=== PATIENT | female | born 1975 | race Caucasian/White ===

== ENCOUNTER 2025-04-11 13:24 | Day surgery (SDC) | payer OTHER, SELFPAY ==
[2025-04-11] VITALS (8 sets, daily range): BP systolic 94–140; BP diastolic 64–93; PULSE 71–104; RESP 15–18; TEMP 36.4–36.7; O2SAT 95–100; BMI 22.6
[2025-04-11] MEDS: Lactated Ringers 1,000 ML 15 ML IV (13:53)
--- NOTE | 2025-04-11 14:10 | PCM.PRE.AN2 ---
ASA Classification* ASA Classification ASA Classification: 1 Assessment & Plan Anesthesia* Anesthesia Assessment Anesthesia Assessment: Discussed sedation and/or anesthesia options, risks, benefits, and alternatives with patient/parents/legal guardian/POA. Questions invited. The patient/parents/legal guardian/POA seems to understand and agrees to proceed with anesthesia plan. Reviewed the physical assessment, medical history, allergy history and patient home medications list prior to surgery/procedure/anesthetic and documented any changes. Performed airway and anesthesia risk assessments. 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 When Was Last Pacemaker Check QUESTION #4 FULL TEXT: You/Your Family Experience fever (hyperthermia) with Anesthesia Last Oral Intake Last Oral intake: Last Oral Intake NPO since 10:30 04/11/25 13:47 Meds taken in AM with sips of No 04/11/25 13:47 water? Meds patient instructed to take am of surgery Any additional information?: Yes NPO since: 10:30 (Patient finished her prep at 10:30 AM.) PONV PONV - demurrage worker: PONV - demurrage worker Female Yes 04/06/25 11:27 HX of Motion Sickness Yes 04/06/25 11:27 HX of N/V After Surgery No 04/06/25 11:27 Non-Smoker Yes 04/06/25 11:27 Duration of Surgery greater No 04/06/25 11:27 than 60 minutes Number of Risk Factors 3 04/06/25 11:27 PONV Score Moderate Risk 04/06/25 11:27 Height & Weight Height & Weight: Anesthesia: Height & Weight Height 5 ft 2 in 04/11/25 13:47 Weight: 56 kg 04/11/25 13:47 Body Mass Index (BMI) 22.6 04/11/25 13:47 Respiratory Assessment Respiratory Assessment - demurrage worker: Respiratory Tract Infection Hx - demurrage worker Hx Respiratory Tract Infection No 04/06/25 11:27 STOP Sleep Apnea STOP Sleep Apnea - demurrage worker: STOP Sleep Apnea - demurrage worker Hx Hypertension No 04/06/25 11:27 Hx Sleep Apnea No 04/06/25 11:27 CPAP BIPAP Do you snore loudly (louder No 04/06/25 11:27 than talking or can be heard Do you often feel tired/ No 04/06/25 11:27 fatigued/ sleepy during daytime? Has anyone observed you stop No 04/06/25 11:27 breathing during sleep? STOP Results Negative 04/06/25 11:27 QUESTION #5 FULL TEXT : Do you snore loudly (louder than talking or can be heard through closed doors)? Tobacco Use History Tobacco Use History - demurrage worker: Tobacco Use History - demurrage worker Tobacco Use Smoking Status Never smoker 04/06/25 11:27 Hx Tobacco Use No 04/06/25 11:27 Years Smoking Packs Smoked per Day Smoking Cessation Date was within the last 15 years Hx Smoking Cessation Date Hx Smoking Cessation Counseling Hematologic Medial History Hematologic Hx - demurrage worker: Hematologic Medical Hx - medical sales representative Hx of Blood Transfusion No 04/06/25 11:27 Hx of Transfusion in last 3 No 04/06/25 11:27 Months Date of Last Transfusion (if within last 3 months) Ever experience any problems No 04/06/25 11:27 with transfusion(s)? Specify any problems Hx of Preganancy in last 3 No 04/06/25 11:27 Months Nurse Filling Out Transfusion [email or web address] 04/06/25 11:27 & Questions: Date: 04/06/25 04/06/25 11:27 Time: 11:29 04/06/25 11:27 Patient unable to answer at this time (ie. confused, unrespo /Reproduction History /Reproductive History - demurrage worker: /Reproductive Hx- demurrage worker Hx Now No 04/06/25 11:27 Gestational Age (in weeks): EDC: Hx Hx Para Hx Section SAB No 04/06/25 11:27 Active Medications Active Medications: Current Medications Generic Name Dose Route Start Last Admin Trade Name Freq PRN Reason Stop Dose Admin Lactated Ringer's 1,000 mls @ 15 mls/hr 04/11/25 14:00 04/11/25 13:53 IV 15 mls/hr .Q48H [facility] Medical History (Updated 04/06/25 @ 11:32 by Wes Wallace) Wears contact lenses Migraine headache History of Holter monitoring Home Medications ?Medication ?Instructions ?Recorded ?Last Taken ?Type norgestimate 0.18 mg/0.215mg/0.25 1 tab PO QDAY 12/16/24 Unknown History mg-ethinyl estradiol 0.025 mg tablet peg 3350-sod sulf,zqexs-pbi-owg 240 ml PO .COMPLEX #2 mL 12/16/24 Unknown Rx 178.7-7.3-0.5-1.12-0.9 gram oral soln (Suflave) ibuprofen 200 mg tablet (Advil) 400 mg PO Q8H PRN pain 04/06/25 Unknown History Allergy/AdvReac Type Severity Reaction Status Date / Time No Known Allergies Allergy Verified 04/11/25 13:46 no surgical history Social History Smoking Status: Never smoker Review of Systems (Anesthesia) ROS Narrative System reviewed and no additional complaints, except as documented.
[2025-04-11 14:28] LABS: Internal QC Validated? YES +Cl - CLEAR BKGD; Pregnancy, Serum, hCG Quali. NEGATIVE Negative
[2025-04-11 14:29] LABS: Record Kit Lot#, Serum Preg. 962302
--- NOTE | 2025-04-11 14:30 | COLBX_PTH ---
PATIENT: SRINATH HAWK LOC: EN U#:[id number] AGE/SX: 50/F ROOM: RE04/11/[address]: Dr. Willy Boyle DO : 1975 BED: DIS: 04/11/2025 SPEC #: [id number] RECD: 04/11/25 15:52 STATUS: DAVID CHARMAINE #: [id number] RADHA: 04/11/25 14:[address]: Willy Boyle DEPT: SURGICAL PATHOLOGY RECD BY: Chencho Haley ENTERED: 04/12/25 09:27 SP TYPE: COLON BX OTHR DR: REID Mix Tissues: A - Ileum, NOS B - Cecum, NOS C - COLON BIOPSY D - Transverse colon E - COLON BIOPSY F - Sigmoid colon biopsy G - Rectum, NOS Procedures: Surgery Specimen Level IV HEADER OPERATION: Colonoscopy with biopsy PRE-OP DIAGNOSIS: Diarrhea TISSUE SUBMITTED: A- Terminal ileum biopsy, B- Cecum biopsy, C- Right side colon biopsy, D- Transverse colon biopsy, E- Left side colon biopsy, F- Sigmoid colon biopsy, G- Rectum biopsy MICROSCOPIC DIAGNOSIS A. Terminal ileum, biopsy: - Normal villous architecture with no specific pathologic change. B. Cecum, biopsy: - Acute colitis with mild crypt architectural distortion. - No granulomas or dysplasia seen. C. Colon, right side, biopsy: - focal active colitis with mild crypt architectural distortion. - No granulomas or dysplasia seen. D. Transverse colon, biopsy: - Acute colitis with mild crypt architectural distortion. - No granulomas or dysplasia seen. E. Colon, left side, biopsy: - Acute cryptitis with crypt architectural distortion. - No granulomas or dysplasia seen. F. Sigmoid colon, biopsy: - Acute cryptitis with crypt architectural distortion. - No granulomas or dysplasia seen. G. Rectum, biopsy: - Acute cryptitis with crypt architectural distortion and basal lymphoplasmacytosis. - No granulomas or dysplasia seen. COMMENT: The histologic differential diagnosis includes inflammatory bowel disease, infection, and diverticular disease-associated colitis. Recommend correlation with clinical, endoscopic, and imaging findings. MICROSCOPIC DESCRIPTION Slides are reviewed. GROSS DESCRIPTION A. Received in fixative is one container labeled with the patient's name and designated Terminal ileum biopsy. The specimen consists of two irregular fragments of light car soft tissue that in aggregate measure 0.3 and 0.8 cm. The specimen is totally submitted in one cassette. B. Received in fixative is one container labeled with the patient's name and designated Cecum biopsy. The specimen consists of three irregular fragments of light car soft tissue that in aggregate measure 0.2 to 0.3 cm. The specimen is totally submitted in one cassette. C. Received in fixative is one container labeled with the patient's name and designated Right side colon biopsy. The specimen consists of two irregular fragments of light car soft tissue that in aggregate measure 0.3 and 0.4 cm. The specimen is totally submitted in one cassette. D. Received in fixative is one container labeled with the patient's name and designated Transverse colon biopsy. The specimen consists of three irregular fragments of light car soft tissue that in aggregate measure 0.3 to 0.4 cm. The specimen is totally submitted in one cassette. E. Received in fixative is one container labeled with the patient's name and designated Left side colon biopsy. The specimen consists of two irregular fragments of light car soft tissue that in aggregate measure 0.5 cm. The specimen is totally submitted in one cassette. F. Received in fixative is one container labeled with the patient's name and designated Sigmoid colon biopsy. The specimen consists of two irregular fragments of light car soft tissue that in aggregate measure 0.4 and 0.5 cm. The specimen is totally submitted in one cassette. G. Received in fixative is one container labeled with the patient's name and designated Rectum biopsy. The specimen consists of five irregular fragments of light car soft tissue that in aggregate measure 0.2 to 0.5 cm. The specimen is totally submitted in one cassette. [place] 04/12/2025 CPT:09896w7
--- NOTE | 2025-04-11 15:06 | HP.PCM_ITS ---
HPI - General General Date of Admission: 04/11/25 Date of Service: 04/11/25 Chief Complaint: Diarrhea HPI Narrative SRINATH HAWK, is a 50 F who presents with the Chief Complaint: diarrhea Pt went on a cruise in Sep 2024 and two hours after eating lobster for dinner she started having sever nausea, vomiting and diarrhea. She was seen on by on the ship and was given an IV antibiotic and zofran. This eventually resolved however her bowels have not gone back to normal. She was someone who had a bm every few days. Now she has small stools multiple times per day. This is bothersome to her as it interrupts her at her job. All stool testing for infection has been normal. She has never had a colonoscopy before [facility] Medical History Wears contact lenses Migraine headache History of Holter monitoring Home Medications ?Medication ?Instructions ?Recorded ?Last Taken ?Type norgestimate 0.18 mg/0.215mg/0.25 1 tab PO QDAY Unknown History mg-ethinyl estradiol 0.025 mg tablet peg 3350-sod sulf,ckuya-rvl-zhw 240 ml PO .COMPLEX #2 mL 12/16/24 Unknown Rx 178.7-7.3-0.5-1.12-0.9 gram oral soln (Suflave) ibuprofen 200 mg tablet (Advil) 400 mg PO Q8H PRN pain 04/06/25 Unknown History Allergy/AdvReac Type Severity Reaction Status Date / Time No Known Allergies Allergy Verified 04/11/25 13:46 Surgical History no surgical history Social History Smoking Status: Never smoker ROS Constitutional Constitutional: Denies fatigue, fever(s), poor appetite, weight gain or weight loss Gastrointestinal Gastrointestinal: Denies belching, bloating, change in bowel habits, change in stool character, chewing difficulty, coffee ground emesis, constipation, cramping, diarrhea, dyspepsia, dysphagia, early satiety, excessive flatus, fecal incontinence, heartburn, hematemesis, hematochezia, hemorrhoids, loose stools, melena, nausea, odynophagia, rectal bleeding, tenesmus, vomiting or weight changes Vital Signs Vital Signs Vital Signs: 04/11/25 13:47 04/11/25 13:47 04/11/25 14:15 Temperature 98.1 F 98.1 F Temperature Source Temporal Pulse Rate 104 H 104 H Respiratory Rate 16 16 Respiratory Pattern Normal Blood Pressure 140/93 H 140/93 H Blood Pressure Mean 108 Blood Pressure Source Monitor Blood Pressure Position Semi-Fowlers Blood Pressure Location Left Arm Pulse Ox 100 100 Oxygen Delivery Method Room Air Room Air Weight Weight: 123 lb 7.342 oz Body Mass Index (BMI) 22.6 Physical Exam Const alert, oriented x3, no apparent distress and healthy appearing General Appearance: cooperative GI normal to inspection, nondistended, normoactive bowel sounds, soft to palpation, non-tender and non-distended Percussion: normal to percussion Rectal Exam: deferred Results Lab / Micro Data Labs: Laboratory Results - last 24 hr 04/11/25 13:50: Serum , Qual NEGATIVE Assessment & Plan Assessment/Plan (1) Diarrhea: PLAN: Assessment and Plan Assessment and Plan (1) Diarrhea: Status: Acute Plan: This is a 49 yo female pt here today for evaluation of changes in her bowel habits. Pt was on a cruise in Sep 2024 when she ate lobster and started vomiting and having diarrhea. Since then she has had small bm multiple times per day which is not normal for her. She has never had a colonoscopy. She will be scheduled for this today. I ordered calprotectin to ensure she does not have inflammation. I recommended she start a fiber supplement daily. -Colonoscopy -calprotectin -start fiber -f/u after procedure
--- NOTE | 2025-04-11 15:39 | OP.COLON_ITS ---
Patient Name: Angelo Zaragoza Procedure Date: 04/11/2025 3:09 PM Date of : 1975 Age: 50 Procedure: Colonoscopy Indications: Chronic diarrhea Providers: Willy Boyle DO Referring MD: Leeann Bhagat Medicines: Monitored Anesthesia Care Patient Profile: This is a 50 year old female. Refer to note in patient chart for documentation of history and physical. Last Colonoscopy: none. The patient's first colonoscopy is today. Complications: No immediate complications. Procedure: Pre-Anesthesia Assessment: - Prior to the procedure, a History and Physical was performed, and patient medications and allergies were reviewed. The patient is competent. The risks and benefits of the procedure and the sedation options and risks were discussed with the patient. All questions were answered and informed consent was obtained. Patient identification and proposed procedure were verified by the physician in the pre-procedure area. Mental Status Examination: alert and oriented. Airway Examination: normal oropharyngeal airway and neck mobility. Respiratory Examination: clear to auscultation. CV Examination: normal. Prophylactic Antibiotics: The patient does not require prophylactic antibiotics. Prior Anticoagulants: The patient has taken no anticoagulant or antiplatelet agents except for NSAID medication. ASA Grade Assessment: II - A patient with mild systemic disease. After reviewing the risks and benefits, the patient was deemed in satisfactory condition to undergo the procedure. The anesthesia plan was to use monitored anesthesia care (MAC). Immediately prior to administration of medications, the patient was re-assessed for adequacy to receive sedatives. The heart rate, respiratory rate, oxygen saturations, blood pressure, adequacy of pulmonary ventilation, and response to care were monitored throughout the procedure. The physical status of the patient was re-assessed after the procedure. After I obtained informed consent, the scope was passed under direct vision. Throughout the procedure, the patient's blood pressure, pulse, and oxygen saturations were monitored continuously. The pediatric colonoscope was introduced through the anus and advanced to the terminal ileum. The colonoscopy was performed without difficulty. The patient tolerated the procedure well. The quality of the bowel preparation was adequate. The terminal ileum, ileocecal valve, appendiceal orifice, and rectum were photographed. Scope In: 3:20:40 PM Scope Withdrawal Time 0 hours 6 minutes 9 seconds Scope Out: 3:32:15 PM Total Procedure Duration Time 0 hours 11 minutes 35 seconds Findings: The perianal and digital rectal examinations were normal. Inflammation was found in a continuous and circumferential pattern from the anus to the cecum. This was graded as Horner Score 2 (moderate, with marked erythema, absent vascular pattern, friability, erosions), and when compared to the previous examination, the findings are new. Biopsies were taken with a cold forceps for histology. Verification of patient identification for the specimen was done. Estimated blood loss was minimal. Liquid stool was found in the sigmoid colon, in the descending colon, in the transverse colon, at the hepatic flexure and in the ascending colon, without interference to visualization. Fluid aspiration was performed through the scope suction channel. The amount of fluid collected was 60 mL. Sample(s) were sent for bacterial cultures and Clostridium difficile. The terminal ileum appeared normal. Biopsies were taken with a cold forceps for histology. Verification of patient identification for the specimen was done. Estimated blood loss was minimal. Impression: - Moderately active (Horner Score 2) pancolitis ulcerative colitis, new since the last examination. Biopsied. - Stool in the sigmoid colon, in the descending colon, in the transverse colon, at the hepatic flexure and in the ascending colon. Fluid aspiration performed. - The examined portion of the ileum was normal. Biopsied. Recommendation: - Discharge patient to home. - Resume previous diet. - Continue present medications. - Await pathology results. - Repeat colonoscopy in 1 year for surveillance based on pathology results. Procedure Code(s): --- Professional --- 63650, Colonoscopy, flexible; with biopsy, single or multiple CPT copyright 2021 [employer]. All rights reserved. The codes documented in this report are preliminary and upon computer language coder review may be revised to meet current compliance requirements. Willy Boyle DO 04/11/2025 3:39:39 PM This report has been signed electronically. Number of Addenda: 0 Note Initiated On: 04/11/2025 3:09 PM
--- NOTE | 2025-04-11 15:40 | OP.PROVAT_ITS ---
04/11/2025 Leeann Bhagat Re : Colonoscopy procedure for Angelo Zaragoza Deafeli Bhagat This procedure was performed on Friday, April 11, 2025. My impressions and recommendations are as follows: Impressions : - Moderately active (Horner Score 2) pancolitis ulcerative colitis, new since the last examination. Biopsied. - Stool in the sigmoid colon, in the descending colon, in the transverse colon, at the hepatic flexure and in the ascending colon. Fluid aspiration performed. - The examined portion of the ileum was normal. Biopsied. Recommendations : - Discharge patient to home. - Resume previous diet. - Continue present medications. - Await pathology results. - Repeat colonoscopy in 1 year for surveillance based on pathology results. My findings are described in the full procedure note, which is enclosed. If I can be of further assistance, please feel free to contact me at . Sincerely, Willy Friend, 04/11/2025 3:39:39 PM This report has been signed electronically.
--- NOTE | 2025-04-11 15:40 | PCM.POST.ANE ---
Anesthesia: Postop Eval I Current Vital Signs Temperature: 97.5 F Pulse Rate: 73 Blood Pressure: 94/69 Respiratory Rate: 15 Pulse Ox: 95 Oxygen Delivery Method: Room Air Assessment Airway patent: Yes Spontaneous unlabored respirations: Yes Mental status: Awake nausea: No Vomiting: No Anesthesia Complication: No Fluid Hydration Crystalloid volume administer (ml): 400 Total IV fluid infused: 400 Progress Note Anesthesia document: Postop Eval 1 completed: Yes
[2025-04-11 17:36] LABS: Hematocrit 39.5 % (37-47); Hemoglobin 12.4 g/dL (12.0-15.0); Immature Granulocytes Count 0.030 X10^3/uL (0.0-0.0); Mean Corp Hgb Conc 31.4 g/dL (32-36); Mean Corpuscular Volume 87.6 fL (81-99); Mean Platelet Vol. 11.0 fl (6.2-12.0); NRBC Flagged by Analyzer 0 % (0-5); Platelet Count 347 K/mm3 (150-450); RBC Distribution Width CV 14.9 % (11.6-14.6); RBC Distribution Width SD 47.9 fl (35.1-43.9); Red Blood Count 4.51 M/mm3 (4.2-5.4); White Blood Count 9.2 K/mm3 (4.4-11.0)
[2025-04-11 17:51] LABS: AST(SGOT) 18 U/L (<=31); Alanine Aminotransfer ALT/SGPT 13 U/L (<=34); Albumin, Serum 3.9 g/dL (3.5-5.0); Alkaline Phosphatase 86 U/L (35-104); Anion Gap 14 (5-15); BUN 8 mg/dL (4-19); BUN/Creat Ratio 8.3 RATIO (10-20); CRP 20.70 mg/L (0.0-3.0); Calcium,Total 9.1 mg/dL (7.6-11.0); Carbon Dioxide 18.9 mmol/L (21.0-32.0); Chloride 102 mmol/L (98-108); Estimated Creatinine Clearance 58.51 ml/min (50-250); Globulin 4.1 g/dL (2.2-4.2); Glucose 122 mg/dL (70-99); Potassium 3.6 mmol/L (3.3-5.1)
--- NOTE | 2025-04-11 20:26 | POSTOPAN2_ITS ---
Anesthesia Postop Eval I Sum Postop Eval Completion status Anesthesia document: Postop Eval 1 completed: Yes Anesthesia Postop Eval I Summary Anesthesia Postop Eval I Summary: Anesthesia Postop Eval I: Assessment Summary Airway patent Yes 04/11/25 15:41 CORPORATE INTERN.APAT Spontaneous unlabored Yes 04/11/25 15:41 CORPORATE INTERN.APAT respirations Mental status Awake 04/11/25 15:41 CORPORATE INTERN.APAT nausea No 04/11/25 15:41 CORPORATE INTERN.APAT Vomiting No 04/11/25 15:41 CORPORATE INTERN.APAT Anesthesia Postop Eval I: Fluid Summary Crystalloid volume administer 400 04/11/25 15:41 CORPORATE INTERN.APAT (ml) Colloids volume administered ( ml) Blood Product volume administered (ml) Total IV fluid infused 400 04/11/25 15:41 CORPORATE INTERN.APAT Anesthesia Postop Eval I: Summary Notes Anesthesia Complication No 04/11/25 15:41 CORPORATE INTERN.APAT Anesthesia Complication Comment: Post-operative progress note Anesthesia: Postop Eval II Evaluation Mental status: Awake and Calm Pain Level: 0 nausea: No Vomiting: No Complications Anesthesia Complication: No
--- NOTE | 2025-04-11 20:26 | PCM.POSTANE2 ---
Anesthesia Postop Eval I Sum Postop Eval Completion status Anesthesia document: Postop Eval 1 completed: Yes Anesthesia Postop Eval I Summary Anesthesia Postop Eval I Summary: Anesthesia Postop Eval I: Assessment Summary Airway patent Yes 04/11/25 15:41 INTERNET SALES CONSULTANT.APAT Spontaneous unlabored Yes 04/11/25 15:41 INTERNET SALES CONSULTANT.APAT respirations Mental status Awake 04/11/25 15:41 INTERNET SALES CONSULTANT.APAT nausea No 04/11/25 15:41 INTERNET SALES CONSULTANT.APAT Vomiting No 04/11/25 15:41 INTERNET SALES CONSULTANT.APAT Anesthesia Postop Eval I: Fluid Summary Crystalloid volume administer 400 04/11/25 15:41 INTERNET SALES CONSULTANT.APAT (ml) Colloids volume administered ( ml) Blood Product volume administered (ml) Total IV fluid infused 400 04/11/25 15:41 INTERNET SALES CONSULTANT.APAT Anesthesia Postop Eval I: Summary Notes Anesthesia Complication No 04/11/25 15:41 INTERNET SALES CONSULTANT.APAT Anesthesia Complication Comment: Post-operative progress note Anesthesia: Postop Eval II Evaluation Mental status: Awake and Calm Pain Level: 0 nausea: No Vomiting: No Complications Anesthesia Complication: No
[2025-04-18 18:08] LABS: Egg, White <0.10 kU/L (Class 0); SCALLOP <0.10 kU/L (Class 0); SESAME SEED <0.10 kU/L (Class 0); Walnut, (Food) <0.10 kU/L (Class 0)
[2025-05-03 13:08] LABS: ACCA 25 units (0-90); ALCA 7 units (0-60); AMCA 47 units (0-100); Albumin 3.5 g/dL (2.9-4.4); Anti-Smooth Muscle ABS 29 Units (0-19); Cytoplasmic Ab (C-ANCA) <1:20 titer (Neg:<1:20); Gamma Globulin 1.9 g/dL (0.4-1.8); HEPATITIS B SURFACE AG Negative (Negative); Hep C Antibodies Non Reactive (Non Reactive); IgG, Quant 1904 mg/dL (586-1602); Immunoglobulin A 179 mg/dL (87-352); Immunoglobulin G, Subclass 1 1167 mg/dL (248-810); Immunoglobulin G, Subclass 2 269 mg/dL (130-555); Immunoglobulin G, Subclass 3 26 mg/dL (15-102); Immunoglobulin G, Subclass 4 24 mg/dL (2-96); Immunoglobulin M 220 mg/dL (26-217); PROEL- TOTAL PROTEIN 7.9 g/dL (6.0-8.5); Perinuclear Ab (P-ANCA) <1:20 titer (Neg:<1:20); QNTFERON TB Mitogen Value > 10.00 IU/mL (.); QNTFERON TB Nil Value 0.02 IU/mL (.); QNTFERON TB1+ Ag Value 0.03 IU/mL (.); QNTFERON TB2+ Ag Value 0.01 IU/mL (.); QNTIFERON TB Positive Criteria Negative (Negative)
== END 2025-04-11 16:25 | disposition home or self-care (01) ==
LOC: EN 13:25 → AC 13:27
PROVIDERS: Anesthesiology; PCP Physician Assistant; Referring Provider Physician Assistant; Visit Provider Internal Medicine Gastroenterology
PROC: 0DJD8ZZ Inspection of Lower Intestinal Tract, Via Natural or Artificial Opening Endoscopic (ICD-10-PCS; CPT 45378; principal; 2025-04-11 14:25)
DX: K51.00 Ulcerative (chronic) pancolitis without complications (principal); R19.7 Diarrhea, unspecified
CPT/HCPCS: 45380; 36415; 80053; 80074; 82784; 82785; 82787; 83516; 84165; 84703; 85025; 85652; 86003; 86036; 86037; 86140; 86255; 86334; 86480; 86671; 87493; 87506; 88305

== ENCOUNTER → 2025-04-13 | Outpatient (CLI) | payer OTHER, SELFPAY ==
--- OUTSIDE RECORDS SUMMARY | 2025-04-13 21:01 | XMS RPT_ITS | CCD ---
Author Organization [facility] CliniSyor Care Team Providers Care Color Repairer Name Role Phone Yosvany Barragan MD Unavailable Yosvany Barragan MD Unavailable KalaRETIRED , Dr. Potts Unavailable Senior Data Warehouse Developer/Gynecology Prov. Unavailable Un available Henri MARRERON, Esther Unavailable UnavailKatlyn Valladares MD Unavailable Yovana MARRERON, Adriana Unavailable Brett MARRERONLorna Unavailable Unavailable King MOE-C, Moises Munguia Unavailable Tylor MARRERON, Asha K Unavailable Unavai erika Bhagat PA-C, Leeann Atkins Unavailable [phone] Melvin MARRERON, Katlyn Perry Unavailable Unavailab lucho Pro CNM, Lucila Jamison Unavailable Rony MARRERON, Densie Unavailable Unavailabl e Unavailable Unavailable Unavailable Unavailable Unavailable Unavailable Lucie Reyes LPN Unavailable Unavailable Madelin Knight Unavailable Unavailable Gastroenterology Provider Unavailable Unavai erika [facility] Attending Unavailable LEEANN BHAGAT Admitting Unavailable YOSVANY BARRAGAN Consulting Unavailable LEEANN BHAGAT Primary Care Unavailable LEEANN BHAGAT Attending Unavailable PROVIDER, UNKNOWN Consulting Unavailable PROVIDER, UNKNOWN Consulting Unavailable PROVIDER, UNKNOWN Consulting Unavailable BHAGAT, LEEANN J Admitting Unavailable BHAGAT, LEEANN J Primary Care Unavailable BHAGAT, LEEANN J Consulting Unavailable BHAGATTINOLEEANN J Attending Unavailable PROVIDER, UNKNOWN Consulting Unavailable BHAGAT, LEEANN J Admitting Unavailable BHAGAT, LEEANN J Primary Care Unavailable BHAGAT, LEEANN J Consulting Unavailable BHAGAT, LEEANN J Attending Unavailable PROVIDER, UNKNOWN Consulting Unavailable LOBO TATUM Consulting Unavailable LOBO TATUM Admitting Unavailable NONE, NONE Primary Care Unavailable LOBO TATUM Attending Unavailable LOBO TATUM Consulting Unavailable NONE, NONE Consulting Unavailable NONE, NONE Consulting Unavailable NONE, NONE Primary Care Unavailable RC PA-C, LUMA Consulting Unavailable RC PA-C~[id number], RC YOUSON Attending Unavailable RC PA-C~[id number], RC LUMA Admitting Unavailable RC PA-C, LUMA Consulting Unavailable NONE, NONE Consulting Unavailable NONE, NONE Consulting Unavailable Antonia OSBORNE Madelin Unavailable Unavailable Delio DE JESUS, Dr. Navi Cagle Primary Care Provider Dr. Navi Kebede MD Referring Provider Xochilt Reaves Attending Provider [phone] Dr. Willy Boyle DO Attending Provider Leeann Parada Primary Care Provider [phone] Leeann Parada Referring Provider [phone] Dr. Willy Boyle DO Other Provider [phone] Olayinka TILLEY, Leeann Atkins Unavailable [phone] Navi Kebede Primary Care Unavailable Navi Kebede Referring Unavailable Xochilt Moreno Attending Unavailable Navi Kebede Primary Care Unavailable Navi Kebede Referring Unavailable oXchilt Moreno Attending Unavailable Willy Boyle Attending Unavailable Leeann Parada Primary Care Unavailable Leeann Parada Referring Unavailable Willy Boyle Consulting Unavailable Willy Boyle Attending Unavailable Leeann Parada Primary Care Unavailable Leeann Parada Referring Unavailable Medications Current Medications Medication Drug Class(es) Dates Sig (Normalized) Sig (Original) Norgestimate-Ethiny l Estradiol (20 sources) Progestin, Estrogen Start: 12-16-2024 Norgestimate-Ethin yl Estradiol 0.18/0.215/0.25 mg-25 mcg tablet Active 1 {tbl} PO daily December 16, 2024 12:00am Start: 12-12-2024 Kristi 0.25 mg-3 5 mcg tablet ; 1 tablet daily for 0 days Quantity: 3 {Packet} Refills: 3 Ordered: 12-Dec-2024 JAREK Bhagat Start: 12-Dec-2024 Start: 08-22-2024 Kristi 0.25 mg-3 5 mcg tablet ; 1 tablet daily for 0 days Quantity: 3 {Packet} Refills: 1 Ordered: 22-Aug-2024 MD Yosvany Barragan Start: 22-Aug-2024 Start: 03-03-2024 Kristi 0.25 mg-3 5 mcg tablet ; 1 tablet daily for 0 days Quantity: 3 {Packet} Refills: 1 Ordered: 03-Mar-2024 JAREK Bhagat Start: 03-Mar-2024 Start: 12-04-2023 Kristi 0.25 mg-3 5 mcg tablet ; 1 tablet daily for 0 days Quantity: 3 {Packet} Refills: 0 Ordered: 04-Dec-2023 JAREK Bhagat Start: 04-Dec-2023 Kristi 0.25 mg-35 mcg tablet ; 1 daily (0.25-35 mg-mcg) ibuprofen 200 mg oral tablet (1 source) Nonsteroidal Anti-inflammatory Drug Start: 04-06-2025 take 2 tablets by mouth every eight hours as needed for pain Ibuprofen (Advil) 200 mg tablet Active 400 mg PO Q8H as needed for pain April 06, 2025 12:00am Peg 3350-Sod Sulf,Grew-Xak-Amr (Suflave) 178.7-7.3-0.5 gram recon soln (1 source) Start: 12-16-2024 Peg 3350-Sod Sulf,Chlr-Pot-Ma g (Suflave) 178.7-7.3-0.5 gram recon soln Active 240 mL PO .COMPLEX 2 0 December 16, 2024 12:00am 240 mL orally; predniSONE 20 mg oral tablet (1 source) Start: 04-11-2025 take 2 tablets by mouth once daily, then take 1 tablet by mouth once daily, then take 0.5 tablet by mouth once daily Prednisone 20 mg tablet Active 40 mg PO daily 60 3 April 11, 2025 12:00am Take 2 tabs a day x 2 weeks, then take 1 tab a day x 2 weeks, then take half a tab a day x 2 weeks Completed/Discontinued Medications Medication Drug Class(es) Dates Sig (Normalized) Sig (Original) azithromycin 500 mg oral tablet (16 sources) Macrolide Antimicrobial Start: 09-26-2024 End: 09-29-2024 Zithromax 500 mg tablet ; 1 (one) tablet daily for 3 days Quantity: 3 {Tablet} Refills: 0 Ordered: 26-Sep-2024 JAREK Bhagat Start: 26-Sep-2024 End: 29-Sep-2024 Status: Inactive cephalexin 500 mg oral capsule (20 sources) Cephalosporin Antibacterial Start: 12-03-2016 End: 12-13-2016 take 1 capsule by mouth three times daily Cephalexin 500 MG Oral Capsule ; 1 Capsule three times daily for 10 days Quantity: 30 {Capsule} Refills: 0 Ordered: 03-Dec-2016 CLAY Ta Start: 03-Dec-2016 End: 13-Dec-2016 Status: Inactive levonorgestrel 0.830499 mg/hr intrauterine system (20 sources) Progestin, Progestin-containing Intrauterine Device MIRENA, 20MCG/24HR (Intrauterine Intrauterine Device) ; (20 MCG/24HR) Status: Inactive metroNIDAZOLE 0.0075 mg/mg topical gel (20 sources) Nitroimidazole Antimicrobial Start: 06-23-2022 End: 12-04-2023 metroNIDAZOLE 0.75 % topical gel ; 1 (one) Application to affected areas BID for 0 days Quantity: 60 {Gram} Refills: 1 Ordered: 04-Dec-2023 LUZ MARIA Álvarez Start: 23-Jun-2022 End: 04-Dec-2023 Status: Inactive nystatin 194576 unt/ml oral suspension (20 sources) Polyene Antifungal Start: 12-03-2016 End: 12-13-2016 Nystatin 364283 UNIT/ML Mouth/Throat Suspension ; 5 Milliliter four times daily for 10 days Quantity: 80 {Milliliter} Refills: 0 Ordered: 03-Dec-2016 CLAY Ta Start: 03-Dec-2016 End: 13-Dec-2016 Status: Inactive Comments: Retain for 1 minute then swallow Comment on above: Retain for 1 minute then swallow Problems Active Problems Problem Classification Problem Date Documented Da te Episodic/Chronic Abdominal pain (20 sources) Unspecified symptom associated with female genital organs; Translations: [Abdominal pain] 02-25-2012 Episodic Benign neoplasm of uterus (20 sources) Uterine leiomyoma; Translations: [Leiomyoma of uterus, unspecified] 09-29-2024 Episodic Cancer of cervix (20 sources) Atypical squamous cells of undetermined significance on cervical Papanicolaou smear; Translations: [Atypical squamous cells of undetermined significance on cytologic smear of cervix (ASC-US)] 06-19-2022 Episodic Cardiac dysrhythmias (20 sources) Multiple premature ventricular complexes; Translations: [Ventricular premature depolarization] 10-18-2015 Chronic Cardiac dysrhythmias (20 sources) Intermittent palpitations; Translations: [Palpitations] 06-12-2022 Episodic Contraceptive and procreative management (20 sources) Intrauterine contraceptive device in situ; Translations: [Presence of (intrauterine) contraceptive device] Onset: 09-14-2010 06-12-2022 Episodic Comment on above: per [place] [employer] INVE[employer]IGATOR Heart valve disorders (20 sources) Heart murmur; Translations: [Cardiac murmur, unspecified] 06-12-2022 Episodic Immunizations and screening for infectious disease (20 sources) Need for prophylactic vaccination and inoculation against influenza 07-15-2011 Episodic Intestinal infection (20 sources) Traveler's diarrhea; Translations: [Infectious gastroenteritis and colitis, unspecified] 09-26-2024 Episodic Menstrual disorders (20 sources) Disorder of menstruation; Translations: [Irregular menstruation, unspecified] 06-19-2022 Chronic Mycoses (20 sources) Candidiasis of mouth; Translations: [Candidal stomatitis] 12-03-2016 Episodic Other gastrointestinal disorders (20 sources) Diarrhea; Translations: [Diarrhea, unspecified] 09-29-2024 Episodic Other gastrointestinal disorders (5 sources) Diarrhea, unspecified; Translations: [DIARRHEA UNSPECIFIED] Onset: 09-24-2024 Episodic Other inflammatory condition of skin (20 sources) Rosacea; Translations: [Rosacea, unspecified] 06-12-2022 Chronic Other non-traumatic joint disorders (20 sources) Pain in left knee; Translations: [Pain in joint, lower leg] 02-29-2024 Episodic Other screening for suspected conditions (not mental disorders or infectious disease) (20 sources) Breast finding ; Translations: [Inconclusive mammogram] 07-28-2022 Episodic Other upper respiratory infections (20 sources) Acute pharyngitis; Translations: [Acute pharyngitis, unspecified] 12-03-2016 Episodic Regional enteritis and ulcerative colitis (1 source) Ulcerative colitis; Translations: [Ulcerative colitis, unspecified, without complications] 04-11-2025 Chronic Residual codes; unclassified (20 sources) Non-smoker; Translations: [Other specified health status] 06-12-2022 Episodic Unclassified (20 sources) Number of Children 06-12-2022 Comment on above: 3. Unclassified (20 sources) Number of Pregnancies 06-12-2022 Comment on above: 5. Unclassified (20 sources) Vaginal deliveries 06-12-2022 Comment on above: 3. Unclassified (20 sources) Palpitations - The symptoms first began 1 week(s) ago. The onset has been sudden. Each episode lasts approximately 30 minutes. The symptoms occur 3 time(s) per day . The symptoms are getting worse. The palpitations are described as fluttering (not fast). Associated features include arm pain (left arm. more numbness than pain.), dizziness (only at work) and shortness of breath (if active during an episode; notes at her new job). There are no precipitating factors. Aggravating factors include change in position. There are no relieving factors. 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 The course has been constant. The knee pain is moderate in the left knee. The knee pain is characterized as a dull aching. The knee pain is described as being located in the under patella. The knee pain is aggravated by stairs. The knee pain is relieved by rest. The symptoms have been associated with painful ROM. Note for Knee pain: One day made 4 trips up and down the steps and then it has persistently been bothering her. No injury.Stairs are the worst activity. Pain is 2/10 currently when sitting.Worse with or after more activity. Sleeps with her knee bent and so after being active it is 5/10. Will taking tylenol if it gets really bad - does help.No ice/heat application. Doesn't feel like it is giving out on her.No swelling. The pain is more in the front of the knee but does feel it in the anterior thigh at times too. 02-29-2024 Past or Other Problems Problem Classification Problem Date Documented Da te Episodic/Chronic Unclassified (1 source) Well adult female 12-04-2023 Unclassified (20 sources) Well adult female - The patient feels well with no complaints, has good energy level and is sleeping well. The first day of the last menstrual period was : (06/09/2022). The patient is not using any method of contraception at this time. The patient has a balanced diet and takes no supplemental vitamins & iron. The patient does not exercise. The patient sleeps 6 hours per night. Note for Well adult female: Usual menses are spotting x 2-3 days, then heavy flow x 2 days, then spotting again. This has been x 2 years - was to have a pelvic US but never did due to covid. 06-12-2022 Unclassified (20 sources) Menstrual problems - The menstrual problems are characterized as intermenstrual spotting (just this last period spotting x 1 week prior to starting normal menses, history of spotting x 2-3 days, then regular bleeding x 2 days, then cycle complete for the last year. this last cycle very abnormal for her) and heavy menses and have been occurring in an intermittent pattern for 1 year. The first day of the last menstrual period was : (11/23/2019). Currently : no. The symptoms have been associated with abdominal pain and abdominal cramps, but have not been associated with painful intercourse or hot flashes. The patient denies the use of oral contraceptives. There is no history of use of intrauterine device (one removed years ago), hormone replacement therapy, infertility treatment or radiation treatment. Note for Menstrual problems: also passing quarter size clots and breast tenderness. 11-28-2019 Unclassified (20 sources) Well adult female - The patient feels well with no complaints, has good energy level and is sleeping well. The current method of contraception is: intrauterine device. The patient has a balanced diet and takes no supplemental vitamins & iron. The patient does not exercise. The patient sleeps 7 hours per night. Note for Well adult female: -Has had IUD since 2010 and she needs it taken out.Both urgent care and [facility] told her that she has a heart murmur in November. 02-11-2017 Unclassified (20 sources) Cold Symptoms - Symptoms include nasal congestion, runny nose, purulent discharge, sore throat, dry cough and headache, but do not include ear pain, fever (had low grade on day one), general malaise or facial pain. The onset was gradual 1 week(s) ago. The symptoms occur frequently. The patient describes this as moderate in severity and unchanged. Current treatment includes non-prescription cold medication (mucinex and nyquil). Risk factors do not include smoking. 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 Note for Upper respiratory infection: right eye is redshe [facility]. Reviewed by SANDI. 12-03-2016 Unclassified (20 sources) check placement of IUD - Mirena placed 2010 by Angelika [employer] MAINTENANCE WORKER-she was supposed to get it checked yearly and realized that it has been since 2011 that she has had it checked. She also had concerns that her period last month lasted 9 days which was unusual. 10-18-2015 Unclassified (20 sources) Pelvic pain - The onset of the pain began suddenly and has been occurring in a persistent pattern for 5 days. The course has been constant. The pain is described as a moderate stabbing pain. The pain is described as being located in the suprapubic area. The pain does not radiate. The first day of the last menstrual period was : (2 wks ago, normal). Menstruation is regular. There is no relation of the pain to menses. Currently : no. Note for Pelvic pain: She has had a Mirena for 10 months, pain just started 5 days ago. Onset was Thursday afternoon at 4pm and lasted all evening. Sat/Sun felt achey in pelvic area. Thursday afternoon cramping began again. She is not bleeding. 02-25-2012 Unclassified (20 sources) check IUD - Had Mirena IUD placed in May by Dr. Katlyn Armendariz (I referred her since I was not able to sound the uterus on attempt here). She states her only complaint is frequent spotting. Does have a week of a heavy period and then spots frequently thru the month. No pain other than cramping during cycle and occasional brief episodes cramping. No pain with intercourse. Is not able to feel her own strings (has not been able to since it was placed). 09-18-2011 Unclassified (20 sources) having mirena insertion - Pt here today to have mirena inserted. She did take ibuprofen and her test today was negative. Consent reviewed and signed and pts questions answered. 05-26-2011 Unclassified (20 sources) iud consult - Pt is interested in the mirena device. She is pretty sure her insurance would cover it. Has read information. No history of tubal . LMP 03/28. 04-24-2011 Unclassified (20 sources) Well adult female - The patient feels well with no complaints, has good energy level and is sleeping well. The first day of the last menstrual period was : (11/15/2023). The patient has a balanced diet. The patient does not exercise. The patient sleeps 7 hours per night. Note for Well adult female: Patient is not wanting pap today. 12-04-2023 Unclassified (1 source) Diarrhea - The onset of the diarrhea has been sudden and has been occurring in a persistent pattern for 2 weeks. The course has been constant. The stools are watery and mixed with blood. The volume of the stools is large. The symptoms have been associated with abdominal pain, nocturnal bowel movements, recent travel to tropics and weakness, while the symptoms have not been associated with fever, joint pains, nausea, past history of abdominal surgery, similar illness in other people eating the same meal, skin lesions or vomiting. Note for Diarrhea: Pt states that on she was on a cruise and 30 minutes after eating Lobster and other seafood she started vomiting and had severe diarrhea. Pt states that she saw the cruise ship doctor and was given ATB through IV - Ceftriaxone and Ondansetron. Dx Gastroenteritis and Colitis. Did feel better after that. Pt states that she got back from the [place] a week ago and was doing a little better but then started getting worse again went to [facility] in [place] they started pt on hyosyamine 0.125 and a stool culture results not in yet.On Thursday did have a little blood noted in the stool. Watery diarrhea. Had chicken noodle soup on Thursday and was up every hour in the night. Yesterday just had apple, banana, and 1/2 cup of rice yesterday- still up twice in the night. Hasn't eaten anything today. Last BM was 9:30am and still watery. Has cramping lower abd pain that improves after BMs.No recent vomiting. No fever.LMP was 09/18/2024. 09-26-2024 Unclassified (15 sources) Diarrhea - The onset of the diarrhea has been sudden and has been occurring in a persistent pattern for 2 weeks. The course has been constant. The stools are watery and mixed with blood. The volume of the stools is large. The symptoms have been associated with abdominal pain, nocturnal bowel movements, recent travel to trop[place] and weakness, while the symptoms have not been associated with fever, joint pains, nausea, past history of abdominal surgery, similar illness in other people eating the same meal, skin lesions or vomiting. Note for Diarrhea: Pt states that on she was on a cruise and 30 minutes after eating Lobster and other seafood she started vomiting and had severe diarrhea. Pt states that she saw the cruise ship doctor and was given ATB through IV - Ceftriaxone and Ondansetron. Dx Gastroenteritis and Colitis. Did feel better after that but stool not back to normal. Pt states that she got back from the Cruise a week ago and was doing a little better but then started getting worse again went to [facility] in [place] they started pt on hyosyamine 0.125 and a stool culture results not in yet.On Thursday did have a little blood noted in the stool. Watery diarrhea. Had chicken noodle soup on Thursday and was up every hour in the night. Yesterday just had apple, banana, and 1/2 cup of rice yesterday- still up twice in the night. Hasn't eaten anything today. Last BM was 9:30am and still watery. Has cramping lower abd pain that improves some after BMs but having pain even when walking across lower abd.No recent vomiting. No fever.Pt did not have food or drink off of the boat (other than bottled water packaged from [employer]).LMP was 09/18/2024. 09-26-2024 Unclassified (8 sources) Well adult female - The patient feels well with minor complaints (still is having some bowel issues, does not have diarrhea but will go several times a day and will come on quickly - usually still formed/solid; has taken prn Imodium but since she was sick with traveler's diarrhea in September it just hasn't been right), has good energy level and is sleeping well. The first day of the last menstrual period was : (12/07/2024). The current method of contraception is: oral contraceptives. The patient has a balanced diet and takes no supplemental vitamins & iron. The patient does not exercise. The patient sleeps 6 hours per night. 12-12-2024 Results Test Name Value Interpretation Reference Range Facility CBC W/Diff, Automatedon 07-2 Absolute Lymph 1.75 X10 3/uL Normal 0.83-4.51 [facility] Comment on above: Performed By: #### L 500.4050, L100.0100, L101.9900, [id number] #### [facility] [address] [place], [address] Absolute Neut 6.0 X10 3/uL Normal 2.0-7.7 [facility] Comment on above: Performed By: #### L 500.4050, L100.0100, L101.9900, [id number] #### [facility] [address] [place], [address] Basophils/100 WBC (Bld) 0.5 % Normal 0-1 [facility] Comment on above: Performed By: #### L 500.4050, L100.0100, L101.9900, [id number] #### [facility] [address] [place], [address] Eosinophils/100 WBC (Bld) 8.6 % High 0-5 [facility] Comment on above: Performed By: #### L 500.4050, L100.0100, L101.9900, [id number] #### [facility] [address] [place], [address] Erythrocyte distribution width (RBC) [Ratio] 14.9 % High 11.6-14.6 [facility] Comment on above: Performed By: #### L 500.4050, L100.0100, L101.9900, [id number] #### [facility] [address] [place], [address] Hematocrit (Bld) [Volume fraction] 39.5 % Normal 37-47 [facility] Comment on above: Performed By: #### L 500.4050, L100.0100, L101.9900, [id number] #### [facility] [address] [place], [address] Hemoglobin (Bld) [Mass/Vol] 12.4 g/dL Normal 12.0-15.0 [facility] Comment on above: Performed By: #### L 500.4050, L100.0100, L101.9900, [id number] #### [facility] [address] [place], [address] IG% 0.300 Normal 0.0-0.9 [facility] Comment on above: Result Comment: IG% - Immature Granulocytes (promyelocytes, myelocytes and metamyelocytes) > 1% indicates that a LEFT SHIFT is Present. Performed By: #### L 500.4050, L100.0100, L101.9900, [id number] #### [facility] [address] [place], [address] Lymphocytes/100 WBC (Bld) 19.1 % Normal 19-41 [facility] Comment on above: Performed By: #### L 500.4050, L100.0100, L101.9900, [id number] #### [facility] [address] [place], [address] MCH (RBC) [Entitic mass] 27.5 pg Normal 27.0-32.0 [facility] Comment on above: Performed By: #### L 500.4050, L100.0100, L101.9900, [id number] #### [facility] [address] [place], [address] MCHC (RBC) [Mass/Vol] 31.4 g/dL Low 32-36 [facility] Comment on above: Performed By: #### L 500.4050, L100.0100, L101.9900, [id number] #### [facility] [address] [place], [address] MCV (RBC) [Entitic vol] 87.6 fL Normal 81-99 [facility] Comment on above: Performed By: #### L 500.4050, L100.0100, L101.9900, [id number] #### [facility] [address] [place], [address] Monocytes/100 WBC (Bld) 6.1 % Normal 0-10 [facility] Comment on above: Performed By: #### L 500.4050, L100.0100, L101.9900, L501.6710 #### [facility] [address] [place], [address] Neutrophils/100 WBC (Bld) 65.4 % Normal 47-70 [facility] Comment on above: Performed By: #### L 500.4050, L100.0100, L101.9900, L501.6710 #### [facility] [address] [place], [address] Nucleated RBC (Bld) [#/Vol] 0 10*3/uL Normal 0-5 [facility] Comment on above: Performed By: #### L 500.4050, L100.0100, L101.9900, L501.6710 #### [facility] [address] [place], [address] Platelet mean volume (Bld) [Entitic vol] 11.0 fL Normal 6.2-12.0 [facility] Comment on above: Performed By: #### L 500.4050, L100.0100, L101.9900, L501.6710 #### [facility] [address] [place], [address] Platelets (Bld) [#/Vol] 347 10*3/uL Normal 150-450 [facility] Comment on above: Performed By: #### L 500.4050, L100.0100, L101.9900, L501.6710 #### [facility] [address] [place], [address] RBC (Bld) [#/Vol] 4.51 10*6/uL Normal 4.2-5.4 [facility] Comment on above: Performed By: #### L 500.4050, L100.0100, L101.9900, L501.6710 #### [facility] [address] [place], [address] RDW SD 47.9 fl High 35.1-43.9 [facility] Comment on above: Performed By: #### L 500.4050, L100.0100, L101.9900, L501.6710 #### [facility] [address] [place], [address] WBC (Bld) [#/Vol] 9.2 10*3/uL Normal 4.4-11.0 [facility] Comment on above: Performed By: #### L 500.4050, L100.0100, L101.9900, L501.6710 #### [facility] [address] [place], [address] CDIFF (PCR)on 04-11-2025 CDIFF Is the patient receiving laxatives? N New/unexplained onset of 3 or more stools in past 24 hrs? Y Pending 027 027 NAP1-B1 Presumptive Negative *for epidemiolologic???use C. Diff PCR Negative- No toxigenic C. Diff Detected Normal [facility] Comment on above: Performed By: #### M 100.6767 #### [facility] [address] [facility] [place], [address] CRPon 04-11-2025 C-REACTIVE PROT 20.70 mg/L High 0.0-3.0 [facility] Comment on above: Performed By: #### L 500.4050, L100.0100, L101.9900, L501.6710 #### [facility] [address] [facility] [place], [place], [address] Colonoscopy Reporton 025 Colonoscopy Report [facility] Medical Records Department [address] [place] [address] Colonoscopy Report MR#: [id number] Acct: [id number] Name: SRINATH HAWK Rep #: [id number] : 1975 50 From: Willy Boyle DO PCP: REID Mix Status:REG [facility] Patient Name: Srinath Hawk Procedure Date: 04/11/2025 3:09 PM Date of : 1975 Age: 50 Procedure: Colonoscopy Indications: Chronic diarrhea Providers: Willy Boyle DO Referring MD: Leeann Bhagat Medicines: Monitored Anesthesia Care Patient Profile: This is a 50 year old female. Refer to note in patient chart for documentation of history and physical. Last Colonoscopy: none. The patient's first colonoscopy is today. Complications: No immediate complications. Procedure: Pre-Anesthesia Assessment: - Prior to the procedure, a History and Physical was performed, and patient medications and allergies were reviewed. The patient is competent. The risks and benefits of the procedure and the sedation options and risks were discussed with the patient. All questions were answered and informed consent was obtained. Patient identification and proposed procedure were verified by the physician in the pre-procedure area. Mental Status Examination: alert and oriented. Airway Examination: normal oropharyngeal airway and neck mobility. Respiratory Examination: clear to auscultation. CV Examination: normal. Prophylactic Antibiotics: The patient does not require prophylactic antibiotics. Prior Anticoagulants: The patient has taken no anticoagulant or antiplatelet agents except for NSAID medication. ASA Grade Assessment: II - A patient with mild systemic disease. After reviewing the risks and benefits, the patient was deemed in satisfactory condition to undergo the procedure. The anesthesia plan was to use monitored anesthesia care (MAC). Immediately prior to administration of medications, the patient was re-assessed for adequacy to receive sedatives. The heart rate, respiratory rate, oxygen saturations, blood pressure, adequacy of pulmonary ventilation, and response to care were monitored throughout the procedure. The physical status of the patient was re-assessed after the procedure. After I obtained informed consent, the scope was passed under direct vision. Throughout the procedure, the patient's blood pressure, pulse, and oxygen saturations were monitored continuously. The pediatric colonoscope was introduced through the anus and advanced to the terminal ileum. The colonoscopy was performed without difficulty. The patient tolerated the procedure well. The quality of the bowel preparation was adequate. The terminal ileum, ileocecal valve, appendiceal orifice, and rectum were photographed. Scope In: 3:20:40 PM Scope Withdrawal Time 0 hours 6 minutes 9 seconds Scope Out: 3:32:15 PM Total Procedure Duration Time 0 hours 11 minutes 35 seconds Findings: The perianal and digital rectal examinations were normal. Inflammation was found in a continuous and circumferential pattern from the anus to the cecum. This was graded as Horner Score 2 (moderate, with marked erythema, absent vascular pattern, friability, erosions), and when compared to the previous examination, the findings are new. Biopsies were taken with a cold forceps for histology. Verification of patient identification for the specimen was done. Estimated blood loss was minimal. Liquid stool was found in the sigmoid colon, in the descending colon, in the transverse colon, at the hepatic flexure and in the ascending colon, without interference to visualization. Fluid aspiration was performed through the scope suction channel. The amount of fluid collected was 60 mL. Sample(s) were sent for bacterial cultures and Clostridium difficile. The terminal ileum appeared normal. Biopsies were taken with a cold forceps for histology. Verification of patient identification for the specimen was done. Estimated blood loss was minimal. Impression: - Moderately active (Horner Score 2) pancolitis ulcerative colitis, new since the last examination. Biopsied. - Stool in the sigmoid colon, in the descending colon, in the transverse colon, at the hepatic flexure and in the ascending colon. Fluid aspiration performed. - The examined portion of the ileum was normal. Biopsied. Recommendation: - Discharge patient to home. - Resume previous diet. - Continue present medications. - Await pathology results. - Repeat colonoscopy in 1 year for surveillance based on pathology results. Procedure Code(s): --- Professional --- 90477, Colonoscopy, flexible; with biopsy, single or multiple CPT copyright 2021 [employer]. All rights reserved. The codes documented in this report are preliminary and upon fine jewelry sales associate review may be revised to meet current compliance r (more content not included)... Normal [facility] Comprehensive Metabolic Prof ilon 04-11-2025 Albumin [Mass/Vol] 3.9 g/dL Normal 3.5-5.0 [facility] Comment on above: Performed By: #### L 500.4050, L100.0100, L101.9900, L501.6710 #### [facility] [address] [place], [address] Albumin/Globulin [Mass ratio] 0.9 {ratio} Normal 0.9-2.4 [facility] Comment on above: Performed By: #### L 500.4050, L100.0100, L101.9900, L501.6710 #### [facility] [address] [place], [address] ALK PHOS 86 U/L Normal 35-104 [facility] Comment on above: Performed By: #### L 500.4050, L100.0100, L101.9900, L501.6710 #### [facility] [address] [place], [address] ALT [Catalytic activity/Vol] 13 U/L Normal <=34 [facility] Comment on above: Performed By: #### L 500.4050, L100.0100, L101.9900, L501.6710 #### [facility] [address] [place], [address] AST [Catalytic activity/Vol] 18 U/L Normal <=31 [facility] Comment on above: Performed By: #### L 500.4050, L100.0100, L101.9900, L501.6710 #### [facility] [address] [place], [address] Bilirubin [Mass/Vol] 0.33 mg/dL Normal 0.00-1.30 [facility] Comment on above: Performed By: #### L 500.4050, L100.0100, L101.9900, L501.6710 #### [facility] [address] [place], [address] BUN/CRE 8.3 RATIO Low 10-20 [facility] Comment on above: Performed By: #### L 500.4050, L100.0100, L101.9900, L501.6710 #### [facility] [address] [place], [address] Calcium [Mass/Vol] 9.1 mg/dL Normal 7.6-11.0 [facility] Comment on above: Performed By: #### L 500.4050, L100.0100, L101.9900, L501.6710 #### [facility] [address] [place], [address] Chloride [Moles/Vol] 102 mmol/L Normal 98-108 [facility] Comment on above: Performed By: #### L 500.4050, L100.0100, L101.9900, L501.6710 #### [facility] [address] [place], [address] CO2 [Moles/Vol] 18.9 mmol/L Low 21.0-32.0 [facility] Comment on above: Performed By: #### L 500.4050, L100.0100, L101.9900, L501.6710 #### [facility] [address] [place], [address] Creatinine [Mass/Vol] 0.93 mg/dL Normal 0.70-1.20 [facility] Comment on above: Performed By: #### L 500.4050, L100.0100, L101.9900, L501.6710 #### [facility] [address] [place], [address] ECRCL 58.51 ml/min Normal 50-250 [facility] Comment on above: Performed By: #### L 500.4050, L100.0100, L101.9900, L501.6710 #### [facility] [address] [place], [address] GAP 14 Normal 5-15 [facility] Comment on above: Performed By: #### L 500.4050, L100.0100, L101.9900, L501.6710 #### [facility] [address] [place], [address] GFR/1.73 sq M.predicted among non-blacks MDRD (S/P/Bld) [Vol rate/Area] 75 mL/min/{1.73_m2} Normal >60 [facility] Comment on above: Result Comment: mL/m in/1.73m2 CKD-EPI Creatinine Equation (2020) Performed By: #### L 500.4050, L100.0100, L101.9900, L501.6710 #### [facility] [address] [place], [address] Globulin (S) [Mass/Vol] 4.1 g/dL Normal 2.2-4.2 [facility] Comment on above: Performed By: #### L 500.4050, L100.0100, L101.9900, L501.6710 #### [facility] [address] [place], [address] Glucose [Mass/Vol] 122 mg/dL High 70-99 [facility] Comment on above: Performed By: #### L 500.4050, L100.0100, L101.9900, L501.6710 #### [facility] [address] [place], [address] Potassium [Moles/Vol] 3.6 mmol/L Normal 3.3-5.1 [facility] Comment on above: Performed By: #### L 500.4050, L100.0100, L101.9900, L501.6710 #### [facility] [address] [place], [address] Sodium [Moles/Vol] 135 mmol/L Normal 133-145 [facility] Comment on above: Performed By: #### L 500.4050, L100.0100, L101.9900, L501.6710 #### [facility] [address] [place], [address] T PROT 8.0 g/dL Normal 5.9-8.4 [facility] Comment on above: Performed By: #### L 500.4050, L100.0100, L101.9900, L501.6710 #### [facility] [address] [place], [address] Urea nitrogen [Mass/Vol] 8 mg/dL Normal 4-19 [facility] Comment on above: Performed By: #### L 500.4050, L100.0100, L101.9900, L501.6710 #### [facility] [address] [place], [address] ENTERIC PATHOGEN PANEL STOOL on 04-11-2025 EP PANEL Comments: collected in endo during colonoscopy CAMPYLOBACTER Not Detected Norovirus Not Detected Rotavirus Not Detected Salmonella Not Detected Shiga Toxin Not Detected Shigella sp. Not Detected VIBRIO Not Detected Yersinia Not Detected Normal [facility] Comment on above: Performed By: #### M 100.637 #### [facility] [address] [place], [place], [address] Erythrocyte Sed Rateon 04-11 SED RATE 37 mm/hr High 0-30 [facility] Comment on above: Performed By: #### L 500.4050, L100.0100, L101.9900, L501.6710 #### [facility] [address] [place], [address] MR/OP.PROVATon 04-11-2025 [facility] Medical Records Department [address] [place] [address] Provation Physician Letter MR#: [id number] Acct: [id number] Name: SRINATH HAWK Rep #: [id number] : 1975 50 From: Willy Boyle DO PCP: REID Mix Status:REG [facility] 04/11/2025 Leeann Bhagat Re : Colonoscopy procedure for Srinath Hawk Dear Olayinka This procedure was performed on Friday, April 11, 2025. My impressions and recommendations are as follows: Impressions : - Moderately active (Horner Score 2) pancolitis ulcerative colitis, new since the last examination. Biopsied. - Stool in the sigmoid colon, in the descending colon, in the transverse colon, at the hepatic flexure and in the ascending colon. Fluid aspiration performed. - The examined portion of the ileum was normal. Biopsied. Recommendations : - Discharge patient to home. - Resume previous diet. - Continue present medications. - Await pathology results. - Repeat colonoscopy in 1 year for surveillance based on pathology results. My findings are described in the full procedure note, which is enclosed. If I can be of further assistance, please feel free to contact me at . Sincerely, Willy Boyle DO 04/11/2025 3:39:39 PM This report has been signed electronically. 04/11/25 1539 Date Willy Carr Signature: Date (if indicated) CC: REID Mix; Willy Boyle DO Date Dictated: 04/11/25 1509 Date Transcribed: Musician Instrumental: KOBY Signed [facility] MR/POSTOP.ANEon 04-11-2025 MR/POSTOP.[facility] Medical Records Department [address] [facility] [place] [address] Anesthesia Postop Eval I 04/11/25 1540 MR#: [id number] Acct: [id number] Name: SRINATH HAWK Rep #: [id number] : 1975 50 From: Dale Giles CRNA PCP: REID Mix Status:REG [facility] Y Race: C Location: [place] [address] Anesthesia: Postop Eval I Current Vital Signs Temperature: 97.5 F Pulse Rate: 73 Blood Pressure: 94/69 Respiratory Rate: 15 Pulse Ox: 95 Oxygen Delivery Method: Room Air Assessment Airway patent: Yes Spontaneous unlabored respirations: Yes Mental status: Awake nausea: No Vomiting: No Anesthesia Complication: No Fluid Hydration Crystalloid volume administer (ml): 400 Total IV fluid infused: 400 Progress Note Anesthesia document: Postop Eval 1 completed: Yes 04/11/25 154 Date Dale Giles EGG BREAKER Cosigner Signature: Date CC: Signed [facility] MR/COKULSME6iq 04-11-2025 MR/POST[address] Medical Records Department [address] [place] [address] Anesthesia Postop Eval II 04/11/252025 MR#: [id number] Acct: [id number] Name: SRINATH HAWK Rep #: [id number] : 1975 50 From: Shailesh Gomez MD PCP: REID Mix Status:DEP [facility] Y Race: C Location: EN Anesthesia Postop Eval I Sum Postop Eval Completion status Anesthesia document: Postop Eval 1 completed: Yes Anesthesia Postop Eval I Summary Anesthesia Postop Eval I Summary: Anesthesia Postop Eval I: Assessment Summary Airway patent Yes 04/11/25 15:41 EGG BREAKER.APAT Spontaneous unlabored Yes 04/11/25 15:41 EGG BREAKER.APAT respirations Mental status Awake 04/11/25 15:41 EGG BREAKER.APAT nausea No 04/11/25 15:41 EGG BREAKER.APAT Vomiting No 04/11/25 15:41 EGG BREAKER.APAT Anesthesia Postop Eval I: Fluid Summary Crystalloid volume administer 400 04/11/25 15:41 EGG BREAKER.APAT (ml) Colloids volume administered ( ml) Blood Product volume administered (ml) Total IV fluid infused 400 04/11/25 15:41 EGG BREAKER.APAT Anesthesia Postop Eval I: Summary Notes Anesthesia Complication No 04/11/25 15:41 EGG BREAKER.APAT Anesthesia Complication Comment: Post-operative progress note Anesthesia: Postop Eval II Evaluation Mental status: Awake and Calm Pain Level: 0 nausea: No Vomiting: No Complications Anesthesia Complication: No 04/11/252025 Date Shailesh Gomez MD Cosigner Signature: Date CC: Signed Normal [facility] ,Serum,hCG Quali.on 04-11-2025 HCG, SERUM QUAL Negative Normal [facility] Comment on above: Performed By: #### L 700.6800 #### [facility] [address] [place], [address] ,Urineon 04-11-2025 Beta HCG ( test) Ql (U) Normal [facility] Comment on above: Result Comment: Canc elled via OM: Pt refuses the test Performed By: #### L 400.7600 ####[facility] [address] [place], [address] INTERNAL QC OK? Normal [facility] Comment on above: Result Comment: Canc elled via OM: Pt refuses the test Performed By: #### L 400.7600 ####[facility] [address] [place], [address] RECORD KIT LOT# Normal [facility] Comment on above: Result Comment: Canc elled via OM: Pt refuses the test Performed By: #### L 400.7600 ####[facility] [address] [place], [address] Serum beta-hCG test, qualita tiveOrdered By: Shailesh Gomez on 04-11-2025 Beta HCG ( test) Ql Negative [facility] Gastroenterology Visit Repor ton 12-16-2024 Gastroenterology Visit Report [facility] [address] [place] [address] OFFICE VISIT Date of Service: 12/16/24 MR#: [id number] Acct: [id number] Name: SRINATH HAWK Rep #: [id number] : 1975 Provider: REID Treadwell Age/Sex: 49/F Location: [facility] Status: Signed Intake Intake Visit Reasons: Travelers Diarrhea Chief Complaint: diarrhea Medications ???Medication ???Instructions ???Recorded ???Confirmed ???Type norgestimate 0.18 mg/0.215 mg/0.25 1 tab PO QDAY 12/16/24 12/16/24 History mg-ethinyl estradiol 25 mcg tablet peg 3350-sod sulf,pdkzq-bnj-sbi 240 ml PO .COMPLEX #2 mL 12/16/24 12/16/24 Rx 178.7-7.3-0.5-1.12-0.9 gram oral soln (Suflave) Patient : No Nurse's Note: OV 12.16.24 Pt here to establish care with [facility]. Pt reports she has been sick since . Pt reports her stools have been abnormal since . Pt states she has bloody, mucus stools. Pt still has gallbladder. Denies n/v/c, and abdominal pain. HPI HPI Chief Complaint: diarrhea Details: SRINATH HAWK, is a 49 F who presents to the office today for establishment with [facility]. Pt went on a cruise in Sep 2024 and two hours after eating lobster for dinner she started having sever nausea, vomiting and diarrhea. She was seen on by on the ship and was given an IV antibiotic and zofran. This eventually resolved however her bowels have not gone back to normal. She was someone who had a bm every few days. Now she has small stools multiple times per day. This is bothersome to her as it interrupts her at her job. All stool testing for infection has been normal. She has never had a colonoscopy before ROS Const Constitutional: No fatigue, fever(s) or weight change ENT ENT: No difficulty swallowing Gastro GI: Positive for abdominal pain, change in bowel habits and Blood in stool; No belching, bloating, change in stool character, coffee ground emesis, constipation, cramping, diarrhea, heartburn, difficulty swallowing, feeling full early, excessive flatus, incontinent of stools, Vomiting blood/hematemesis, loose stools, Black,tarry stools, nausea/dyspepsia, pain with swallowing, vomiting or other Musc Musculoskeletal: No joint pain Skin Skin: No yellowing of the eye or itchy eyes Psych Psychiatric: No anxiety and No depression Endo Endocrine: No fatigue or weight change Aller/Imm Allergy/Immunologic: No itchy eyes Eren/Lymp Hematologic/Lymphatic: No easy bleeding or easy bruising Exam Const General: cooperative and comfortable Nutritional Appearance: average body habitus and well nourished [facility] Head: normal to inspection Ears: hearing grossly normal bilaterally Nose: external nose normal Face and sinus: normal facial exam Throat: posterior oropharynx abnormal Eyes General: appearance normal, both eyes and all related structures Neck Neck: normal visual inspection Chest Chest palpation inspection: normal inspection of the chest and normal palpation of entire chest wall Resp Effort Inspection: normal respiratory effort Auscultation: Bilateral: Clear to Auscultation Cardio Palpation: normal PMI Rate: regular rate Rhythm: regular rhythm GI Inspection: normal to inspection Auscultation: normal bowel sounds Percussion: normal to percussion Palpation: no hepatosplenomegaly Skin General: no rashes or lesions noted Neuro General: patient alert Extrem General: normal to inspection Psych Affect: normal affect Assessment and Plan Assessment and Plan (1) Diarrhea: Status: Acute Plan: This is a 49 yo female pt here today for evaluation of changes in her bowel habits. Pt was on a cruise in Sep 2024 when she ate lobster and started vomiting and having diarrhea. Since then she has had small bm multiple times per day which is not normal for her. She has never had a colonoscopy. She will be scheduled for this today. I ordered calprotectin to ensure she does not have inflammation. I recommended she start a fiber supplement daily. -Colonoscopy -calprotectin -start fiber -f/u after procedure Orders: Orders Calprotectin, Stool Today R19.7 - Diarrhea, unspecified Coding Level of Care Code Off vis,new,level 3 Diagnoses Diarrhea R19.7 12/16/24 1650 Date Xochilt MATHEWS Cosigner Signature: Date (if applicable) CC: Normal [facility] THINPREP TIS PAP AND HPV mRN A E6/E7on 12-14-2024 CLINICAL INFORMATION: Normal [facility] Comment on above: Result Comment: None given Performed By: #### 9 0933 #### [facility] [address], [address] [place] [address] Electric Motor Rebuilder: David Solorzano MD COMMENT Normal [facility] Comment on above: Result Comment: EXPL ANATORY NOTE: The Pap is a screening test for cervical cancer. It is not a diagnostic test and is subject to false negative and false positive results. It is most reliable when a satisfactory sample, regularly obtained, is submitted with relevant clinical findings and history, and when the Pap result is evaluated along with historic and current clinical information. Performed By: #### 9 0933 #### [facility] [address], [address] [place] [address] Electric Motor Rebuilder: David Solorzano MD COMMENT: Normal [facility] Comment on above: Result Comment: This Pap test has been evaluated with computer assisted technology. Performed By: #### 9 0933 #### [facility] [place] [address] Electric Motor Rebuilder: David Solorzano MD CLINICAL LAB TECHNOLOGIST: Normal [facility] Comment on above: Result Comment: BH, CT(ASCP) CT screening location: [employer] [address]. Performed By: #### 9 0933 #### [facility] [address], [address] [place] [address] Electric Motor Rebuilder: David Solorzano MD HPV mRNA E6/E7 Not detected Normal Not Detected [facility] Comment on above: Result Comment: Meth odology: Court Collections Officer-Mediated Amplification This assay detects E6/E7 viral messenger RNA (mRNA) from 14 high-risk HPV types (16,18,31,33,35,39,45,51,52,56,58,59,66,68). Cervical sources are required for HPV testing. If a vaginal source from a patient who has had a total hysterectomy with removal of cervix was submitted, please contact the testing laboratory for alternative testing options. For additional information, please refer to http://education.Intersoft Eurasia.MediaSpike/faq/PQE348i1 (This link if provided for information/ educational purposes only.) Performed By: #### 9 0933 #### [facility] [address], [address] [place] [address] [employer]: David Solorzano MD INTERPRETATION/RESULT: Normal [facility] Comment on above: Result Comment: Cyto logy Results: Negative for intraepithelial lesion or malignancy. Performed By: #### 9 0933 #### [facility] of [address], [address] [place] [address] [employer]: David Solorzano MD LMP: Normal [facility] Comment on above: Result Comment: None given Performed By: #### 9 0933 #### [facility] of [address], [address] [place] [address] [employer]builder: David Solorzano MD PREV. BX: Normal [facility] Comment on above: Result Comment: None given Performed By: #### 9 0933 #### [facility] of [address], [address] [place] [address] [employer]: David Solorzano MD PREV. PAP: Normal [facility] Comment on above: Result Comment: None given Performed By: #### 9 0933 #### [facility] of [place] [address] [employer]: David Solorzano MD REVIEW CLINICAL LAB TECHNOLOGIST: Normal [facility] Comment on above: Result Comment: PEH, CT(ASCP) CT screening location: [place] [address]. Performed By: #### 9 0933 #### [facility] of [address], [address] [place] [address] [employer]: David Solorzano MD SOURCE: Normal [facility] Comment on above: Result Comment: None given Performed By: #### 9 0933 #### [facility] of [address], [address] [place] [address] [employer]: David Solorzano MD STATEMENT OF ADEQUACY: Normal [facility] Comment on above: Result Comment: Sati sfactory for evaluation. Endocervical/transformation zone component present. Performed By: #### 9 0933 #### [facility] of [address], [address] [place] [address] [employer]: David Solorzano MD No Panel Informationon 12-12 [id number] SEE NOTE Normal [facility], Inc.; [employer]. CLINICAL INFORMATION: SEE NOTE Normal [facility].; CheungWebspy, [employer]. COMMENT: SEE NOTE Normal [facility].; [employer] App. CLINICAL LAB TECHNOLOGIST: SEE NOTE Normal [facility] [employer].; TripIt. HPV mRNA E6/E7 Not detected Normal [facility].; [employer]. INTERPRETATION/RESULT: SEE NOTE Normal [facility].; [employer] App. LMP: SEE NOTE Normal [facility].; [employer]. PREV. BX: SEE NOTE Normal [facility].; [employer]. PREV. PAP: SEE NOTE Normal [facility].; Cheung [employer]. REVIEW CLINICAL LAB TECHNOLOGIST: SEE NOTE Normal [facility].; [employer] App. SOURCE: SEE NOTE Normal [facility].; [employer]. STATEMENT OF ADEQUACY: SEE NOTE Normal [facility].; [employer] App. CLOSTRIDIUM DIFFICLE TOXIN P CR [CCL]on 09-30-2024 RESULT CRITICAL? NO Normal [facility] Comment on above: Performed By: #### 2 [id number] #### [facility],[address] [place] [address] C difficile PCR Negative Normal Negative for C. difficile [facility] Comment on above: Result Comment: [place] [address] Anoop Garcia III, M.D. [id number] Performed By: #### 2 14735 #### [facility],[address] [place], [place] [address] C DIFF COMPLETEon 09-28-2024 C DIFF COMPLETE C DIFF COMPLETE 0{ C-DIFF TOXIN _negative__ (NRL: NEGATIVE ) 09/28/24.1722.AEL. C-DIFF AG NEGATIVE INTERNAL NEG QC PASS INTERNAL POS QC PASS EXTERNAL QC DONE? YES INTERPRETATION: POSITIVE Ag,POSITIVE Tox = C. Diff is present & producing toxins POSITIVE Ag,NEGATIVE Tox = C. Diff is present NEGATICE Ag,NEGATICE Tox = C. Diff is not present A low percentage of specimens may test negative for antigen but positive for toxin. A fresh specimen should be resumbitted for retesting. Normal [facility] Comment on above: Performed By: #### 2 88688 #### [facility],[address] [place] [address] CT ABDOMEN/PELVIS Won 2024 CT ABDOMEN/PELVIS [place] [id number] Patient: SRINATH HAWK Phone#: : 1975 Age: 49 Gender: F Pt. Type: Out Account: [id number] Location: [facility] Ordering: [facility] Exam Date: 09/28/2024/8:05 Family Phys: Charge Code: [id number] Physician: Turner Order #: [id number] Dose#: 9.6 mGy PROCEDURE: CT ABDOMEN/PELVIS WITH CONTRAST COMPARISON: None. INDICATIONS: Abdominal pain. TECHNIQUE: After obtaining the patient's consent, CT images were created with non-ionic intravenous contrast and oral contrast material. All CT scans at this facility use dose modulation, iterative reconstruction, and/or weight based dosing when appropriate to reduce radiation dose to as low as reasonably achievable. IV CONTRAST: Omnipaque 350,80ml TOTAL DOSE: 9.6 CTDIvol(mGy) FINDINGS: LIVER: Fatty changes of the liver are present. There is no evidence of focal abnormality. BILIARY: Normal. No visible dilatation or calcification. PANCREAS: Normal. No lesion, fluid collection, ductal dilatation, or atrophy. SPLEEN: Normal. No enlargement or focal lesion. KIDNEYS: Normal. No mass, obstruction, or calcification. ADRENALS: Normal. No mass or enlargement. AORTA/VASCULAR: Normal. No aneurysm or dissection. RETROPERITONEUM: Normal. No mass or adenopathy. BOWEL/MESENTERY: Normal. No visible mass, obstruction, or bowel wall thickening. ABDOMINAL WALL: Normal. No mass or hernia. URINARY BLADDER: Normal. No visible focal wall thickening, lesion, or calculus. PELVIC NODES: Normal. No adenopathy. PELVIC ORGANS: The uterus is bulbous in contour. Foci abnormal attenuation are present the largest measuring 18 millimeters. Probable uterine fibroids. Further evaluation by pelvic ultrasound is recommended. BONES: Disc space narrowing is present. There is vacuum phenomenon at L5-S1 LUNG BASES: Normal. No visible pulmonary or pleural disease. OTHER: Negative. Continued Report - Page 2 of 2 Patient: SRINATH HAWK Phone#: : 1975 Age: 49 Gender: F Pt. Type: Out Account: [id number] Location: [facility] Ordering: [facility] Exam Date: 09/28/2024/8:05 Family Phys: Charge Code: [id number] Physician: Turner Order #: [id number] Dose#: 9.6 mGy CONCLUSION: 1. Hepatic steatosis. 2. There is no evidence of acute abdominal or pelvic abnormality. 3. The uterus is bulbous in contour. There are a few foci of abnormal attenuation suspicious for fibroids. Further evaluation by pelvic ultrasound is recommended. Dictated by: Shania Ross MD on 09/28/2024 at 13:47 Approved by: Shania Ross MD on 09/28/2024 at 13:54 Normal [facility] - Microbiology an d Antimicrobial susceptibilityon 09-28-2024 C. difficile toxin A+B IA Ql (Stl) C DIFF COMPLETE Normal [facility].; TripIt. Chlamydia sp Ag IA Ql (Vag fld) Negative Normal [facility].; TripIt. No Panel Informationon 09-28 C difficile PCR Negative Normal [facility].; TripIt. Work Phone: INTERNAL NEG QC PASS Normal [facility].; TripIt. INTERNAL POS QC PASS Normal [facility].; Cylande, [employer]. Observation duration YES Normal [facility].; CheungRundown App. RESULT CRITICAL? NO Normal [facility].; CheungWebspy, [employer]. Work Phone: GI PANELon 09-24-2024 ADENOVIRUS Not detected Normal NOT DETECTED [facility] Comment on above: Performed By: #### Suzi UNGER #### [place] [address] [facility]. [place] [address] [employer]builder - [facility] CLIA [id number] ASTROVIRUS Not detected Normal NOT DETECTED [facility] Comment on above: Performed By: #### Suzi UNGER #### [address] [place] [address] [employer] - [facility] CLIA [id number] CAMPYLOBACTER Not detected Normal NOT DETECTED [facility] Comment on above: Performed By: #### Suzi UNGER #### [place] [address] [employer] - [facility] [id number] CRYPTOSPORIDIUM Not detected Normal NOT DETECTED [facility] Comment on above: Performed By: #### Suzi UNGER #### [place] [address] [employer] - [facility] [id number] CYCLOSPORA Not detected Normal NOT DETECTED [facility] Comment on above: Performed By: #### Suzi UNGER #### [place] [address] [employer] - [facility] CLIA [id number] E.COLI(EAEC) Not detected Normal NOT DETECTED [facility] Comment on above: Performed By: #### Suzi UNGER #### [place] [address] [employer] - [facility] [id number] E.COLI(EPEC) Not detected Normal NOT DETECTED [facility] Comment on above: Performed By: #### Suzi UNGER #### [place] [address] [employer] - [facility] [id number] E.COLI(ETEC) Not detected Normal NOT DETECTED [facility] Comment on above: Performed By: #### G Jhonathan PANE #### [facility] [address] [place] [address] [employer] - [place] [id number] E.COLI(STEC) Not detected Normal NOT DETECTED [facility] Comment on above: Performed By: #### G I PANE #### [facility] [address] [place] [address] [employer] - [place] [address] E.[email or web address] NOT APPLICABLE Normal NOT DETECTED [facility] Comment on above: Performed By: #### G I PANE #### [facility] [address] [place] [address] [employer] - [place] [id number] ENT HISTOLYTICA Not detected Normal NOT DETECTED [facility] Comment on above: Performed By: #### G I PANE #### [facility] [address] [place] [address] [employer] - [place] [id number] GIARDIA LAMBLIA Not detected Normal NOT DETECTED [facility] Comment on above: Performed By: #### G I PANE #### [facility] [address] [place] [address] [employer] - [place] [address] HPCR TESTING PERFORMED BY PCR METHODOLOGY Normal [facility] Comment on above: Performed By: #### G I PANE #### [facility] [address] [place] [address] [employer]builder - [place] [id number] HPCRB TEST PERFORMED USING BIOFIRE Normal [facility] Comment on above: Performed By: #### G I PANE #### [facility] [address] [place] [address] [employer] - [place] [id number] NOROVIRUS GI/GII Not detected Normal NOT DETECTED [facility] Comment on above: Performed By: #### G I PANE #### [facility] [address] [place] [address] [employer] Rebuilder - [facility] [id number] Plesiomonas shigello Not detected Normal NOT DETECTED [facility] Comment on above: Performed By: #### Suzi UNGER #### [facility] [address] [place] [address] Electric [employer]builder - [facility] CLIA [id number] ROTAVIRUS A Not detected Normal NOT DETECTED [facility] Comment on above: Performed By: #### Suzi UNGER #### [place] [address] [employer] - [facility] [id number] SALMONELLA Not detected Normal NOT DETECTED [facility] Comment on above: Performed By: #### Suzi UNGER #### [place] [address] [employer] - [facility] [id number] SAPOVIRUS Not detected Normal NOT DETECTED [facility] Comment on above: Performed By: #### Suzi UNGER #### [place] [address] [employer] - [facility] [id number] SHIGELLA Not detected Normal NOT DETECTED [facility] Comment on above: Performed By: #### Suzi UNGER #### [place] [address] [employer] - [facility] [id number] VIBRIO Not detected Normal NOT DETECTED [facility] Comment on above: Performed By: #### Suzi UNGER #### [place] [address] [employer] - [facility] CLIA [id number] VIBRIO CHOLERAE Not detected Normal NOT DETECTED [facility] Comment on above: Performed By: #### Suzi UNGER #### [place] [address] [employer] - [facility] [id number] YERSINIA enterocolit Not detected Normal NOT DETECTED [facility] Comment on above: Performed By: #### Suzi UNGER #### [address] [place], [place] [address] Electric [employer] Rebuilder - Conniegalina Allen [place] [id number] KNEE COMPLETE LT MIN 4 VIEWS on 02-29-2024 KNEE COMPLETE LT MIN [address] [address] Patient: SRINATH HAWK Phone#: : 1975 Age: 49 Gender: F Pt. Type: Out Account: [id number] Location: [facility] Ordering: LEEANN BHAGAT Exam Date: 02/29/2024/11:32 Family Phys: YOSVANY BARRAGAN Charge Code: [id number] Physician: Turner Order #: [id number] Dose#: PROCEDURE: X-RAY KNEE LT COMPLETE 4 VIEWS COMPARISON: None. INDICATIONS: Pain. FINDINGS: BONES: Normal. No significant arthropathy or acute abnormality. SOFT TISSUES: Negative. No visible soft tissue swelling. EFFUSION: None visible. OTHER: Negative. CONCLUSION: No acute disease. Dictated by: Shania Ross MD on 02/29/2024 at 13:53 Approved by: Shania Ross MD on 02/29/2024 at 13:53 Normal [facility] - Chemistry and C hemistry - challengeon 06-12-2022 Albumin [Mass/Vol] 4.5 g/dL Normal 3.6 - 5.1 g/dL [facility], [facility].; [employer]yl[employer], Inc. Albumin/Globulin [Mass ratio] 1.5 {ratio} Normal 1.0 - 2.5 [employer], [employer].; Cylande, [employer]. ALP [Catalytic activity/Vol] 69 U/L Normal 31 - 125 U/L [employer], [employer].; [employer]ylande, [employer]. ALT [Catalytic activity/Vol] 15 U/L Normal 6 - 29 U/L [employer], [employer].; [employer]ungWeb[employer]y, Inc. AST [Catalytic activity/Vol] 16 U/L Normal 10 - 35 U/L [employer], [employer].; [employer]ungWebspy, [employer]. Bilirubin [Mass/Vol] 0.3 mg/dL Normal 0.2 - 1 .2 mg/dL [facility].; [facility], [facility]. Calcium [Mass/Vol] 9.2 mg/dL Normal 8.6 - 10. 2 mg/dL [facility].; [facility], [facility]. Chloride [Moles/Vol] 103 mmol/L Normal 98 - 11 0 mmol/L [facility], [facility].; [place] [employer] [facility], [facility]. CO2 [Moles/Vol] 28 mmol/L Normal 20 - 32 mmol/L [facility].; [place] [employer] [facility], [facility]. Creatinine [Mass/Vol] 0.71 mg/dL Normal 0.50 - 0.99 mg/dL [facility].; [facility], [facility]. GFR/1.73 sq M.predicted among non-blacks MDRD (S/P/Bld) [Vol rate/Area] 107 mL/min/{1.73_m2} Normal [facility].; [place] [employer] [facility], [facility]. Glucose [Mass/Vol] 81 mg/dL Normal 65 - 99 mg/dL [facility].; [place] [employer], [facility]. Potassium [Moles/Vol] 4.0 mmol/L Normal 3.5 - 5.3 mmol/L [facility].; [place] [employer], [employer]. Protein [Mass/Vol] 7.5 g/dL Normal 6.1 - 8.1 g/dL [facility], [facility].; [place] [employer], [employer]. Sodium [Moles/Vol] 138 mmol/L Normal 135 - 146 mmol/L [facility].; [place] [employer], [employer]. Urea nitrogen [Mass/Vol] 13 mg/dL Normal 7 - 25 mg/dL [facility].; [place] [employer], [employer]. Laboratory - Hematology and Cell countson 06-12-2022 Basophils (Bld) [#/Vol] 0.069 10*3/uL Normal 0 - 200 {cells/uL} [facility].; [place] [employer], [employer]. Basophils/100 WBC (Bld) 1.1 % Normal [facility].; [place] [employer], [employer]. Eosinophils (Bld) [#/Vol] 0.302 10*3/uL Normal 15 - 500 {cells/uL} [facility].; [employer]ung [employer] [facility]. Eosinophils/100 WBC (Bld) 4.8 % Normal [facility].; [place] [employer], [facility]. Erythrocyte distribution width (RBC) [Ratio] 12.8 % Normal 11.0 - 15.0 % [facility].; [employer]ung [employer], [employer]. Hematocrit (Bld) [Volume fraction] 37.8 % Normal 35.0 - 45.0 % [facility].; [place] [employer], [facility]. Hemoglobin (Bld) [Mass/Vol] 12.8 g/dL Normal 11.7 - 15.5 g/dL [place] [facility].; [place] [employer] [facility], [facility]. Lymphocytes (Bld) [#/Vol] 1.373 10*3/uL Normal 850 - 3900 {cells/uL} [facility].; [employer], [employer]. Lymphocytes/100 WBC (Bld) 21.8 % Normal [place] [employer] [facility].; [place] [employer], [employer]. MCH (RBC) [Entitic mass] 29.9 pg Normal 27.0 - 33.0 pg [place] [employer].; CheungWebspy, [employer]. MCHC (RBC) [Mass/Vol] 33.9 g/dL Normal 32.0 - 36.0 g/dL [facility].; [employer]ung [employer], [employer]. MCV (RBC) [Entitic vol] 88.3 fL Normal 80.0 - 100.0 fL [place] [employer].; [place] [employer], [facility]. Monocytes (Bld) [#/Vol] 0.422 10*3/uL Normal 200 - 950 {cells/uL} [employer] [facility].; [employer]ungWebspy, [employer]. Monocytes/100 WBC (Bld) 6.7 % Normal [employer].; [place] [employer], [facility]. Neutrophils (Bld) [#/Vol] 4.133 10*3/uL Normal 1500 - 7800 {cells/uL} [employer].; [employer]ung[employer], [employer]. Neutrophils/100 WBC (Bld) 65.6 % Normal [place] [employer].; [place] [employer]. Platelet mean volume (Bld) [Entitic vol] 11.2 fL Normal 7.5 - 12.5 fL [facility] [employer].; [employer]ungRundown App. Platelets (Bld) [#/Vol] 265 10*3/uL Normal 140 - 400 [place] [employer].; [employer]. RBC (Bld) [#/Vol] 4.28 10*6/uL Normal 3.80 - 5.1 0 {Million/uL} [facility] [employer].; [place] [employer]. WBC (Bld) [#/Vol] 6.3 10*3/uL Normal 3.8 - 10.8 [facility] [employer].; [employer]own App. No Panel Informationon 06-12 [id number] SEE NOTE Normal [facility] [employer].; [employer] App. BUN/CREATININE RATIO NOT APPLICABLE Normal 6 - 22 [facility] [employer].; [employer] App. CLINICAL INFORMATION: SEE NOTE Normal [facility] St[employer].; [employer]own App. COMMENT: SEE NOTE Normal [facility] [employer].; [employer] App. CLINICAL LAB TECHNOLOGIST: SEE NOTE Normal [place] [employer].; [employer] App. GENERAL CATEGORIZATION: SEE NOTE Abnormal [place] [employer].; [employer]. GLOBULIN 3.0 Normal 1.9 - 3.7 [facility].; [employer] App. HPV mRNA E6/E7 Not detected Normal [facility].; [employer] App. Work Phone: INTERPRETATION/RESULT: SEE NOTE Abnormal [facility] St[employer].; [employer] App. LMP: SEE NOTE Normal [place] [employer].; [employer] App. PATHOLOGIST: SEE NOTE Normal [facility].; [employer]own App. PREV. BX: SEE NOTE Normal [place] [employer].; CheungWebspy, [employer]. PREV. PAP: SEE NOTE Normal [facility] [employer].; CheungWebspy, Inc. SOURCE: SEE NOTE Normal [facility] [employer].; [employer] App. STATEMENT OF ADEQUACY: SEE NOTE Normal [facility], [facility]; [facility], [facility] TSH W/REFLEX TO FT4 1.26 {mIU/L} Normal [facility]; [facility], [facility] No Panel Informationon 02-11 PANEL NAME THIN PREP (QU) PAP WITH HPV REFLEX Normal [facility]; [place] [employer] [facility], [facility] Laboratory - Chemistry and C hemistry - challengeon 10-18-2015 Anion gap [Moles/Vol] 11 mmol/L Normal 10 - 2 0 mmol/L [facility], [facility]; [facility], [facility] Basic metabolic 2000 panel BMP with eGFR Normal [facility]; [facility], [facility] Calcium [Mass/Vol] 9.4 mg/dL Normal 8.6 - 10. 2 mg/dL [facility], [facility].; [facility], [facility] Chloride [Moles/Vol] 99 mmol/L Normal 98 - 10 7 mmol/L [facility].; [facility], [facility]. CO2 [Moles/Vol] 30.0 mmol/L Abnormal 13.0 - 29.0 mmol/L [facility], [facility].; [facility], [facility]. Creatinine [Mass/Vol] 0.7 mg/dL Normal 0.6 - 1.2 mg/dL [facility], [facility].; [facility], [facility]. GFR/1.73 sq M.predicted among blacks MDRD (S/P/Bld) [Vol rate/Area] mL/min/{1.73_m2} Normal 60 - 999 {ML/MINUTE} [facility], [facility].; [facility], [facility]. GFR/1.73 sq M.predicted MDRD (S/P/Bld) [Vol rate/Area] mL/min/{1.73_m2} Normal 60 - 999 {ML/MINUTE} [facility], [facility].; [facility], [facility]. Glucose [Mass/Vol] 82 mg/dL Normal 74 - 106 mg/dL [facility], [facility].; [facility] Magnesium [Mass/Vol] 2.0 mg/dL Normal 1.6 - 2 .6 mg/dL [facility], [facility].; [facility]. Potassium [Moles/Vol] 4.0 mmol/L Normal 3.5 - 5.1 mmol/L [facility].; [place] [employer] Sodium [Moles/Vol] 136 mmol/L Normal 136 - 145 mmol/L [facility].; [place] [employer] Urea nitrogen [Mass/Vol] 16 mg/dL Normal 6 - 20 mg/dL [place] [employer].; [employer]. No Panel Informationon 10-18 AGE 40 {years} Normal [place] [employer]; [place] [employer]. Laboratory - Chemistry and C hemistry - challengeon 10-04-2015 TSH Qn 1.63 m[IU]/L Normal 0.40 - 4.50 {mIU/L} [facility].; [employer]. Laboratory - Hematology and Cell countson 10-04-2015 Basophils (Bld) [#/Vol] 70 {Cells}/uL Normal 0 - 200 {Cells}/uL [facility].; [employer]. Basophils/100 WBC (Bld) 1 % Normal 0 - 1 % [place] [employer].; [employer]. Eosinophils (Bld) [#/Vol] 210 {Cells}/uL Normal 15 - 500 {Cells}/uL [place] [employer].; [employer]. Eosinophils/100 WBC (Bld) 3 % Normal 0 - 4 % [place] [employer].; [employer]. Erythrocyte distribution width (RBC) [Ratio] 12.7 % Normal 11.0 - 15.0 % [place] [employer].; [employer]. Hematocrit (Bld) [Volume fraction] 41.9 % Normal 35.0 - 45.0 % [place] [employer].; [employer]. Hemoglobin (Bld) [Mass/Vol] 13.6 g/dL Normal 11.7 - 15.5 g/dL [place] [employer].; [place] [employer], [employer]. Lymphocytes (Bld) [#/Vol] 3030 {Cells}/uL Normal 850 - 3900 {Cells}/uL [place] [employer].; [employer]. Lymphocytes/100 WBC (Bld) 47 % Normal 12 - 47 % [facility].; [place] [employer] [facility], [employer]. MCH (RBC) [Entitic mass] 29.9 pg Normal 27.0 - 33.0 PG [facility].; [place] [facility], [facility]. MCHC (RBC) [Mass/Vol] 32.4 g/dL Normal 32.0 - 36.0 g/dL [facility].; [place] [employer], [employer]. MCV (RBC) [Entitic vol] 92.4 fL Normal 80.0 - 100.0 fL [facility].; [place] [employer], [facility]. Monocytes (Bld) [#/Vol] 440 {Cells}/uL Normal 200 - 950 {Cells}/uL [facility].; [place] [employer], [employer]. Monocytes/100 WBC (Bld) 7 % Normal 4 - 12 % [facility] [employer] [facility].; [place] [employer], [employer]. Neutrophils (Bld) [#/Vol] 2710 {Cells}/uL Normal 1500 - 7800 {Cells}/uL [facility].; [place] [employer]. Neutrophils/100 WBC (Bld) 42 % Normal 40 - 75 % [facility] [employer] [facility].; [place] [employer]. Platelet mean volume (Bld) [Entitic vol] 11.2 fL Normal 7.5 - 11.5 fL [facility].; [place] [employer], [facility]. Platelets (Bld) [#/Vol] 174 10*3/uL Normal 140 - 400 10*3/uL [facility].; [place] [employer], [employer]. RBC (Bld) [#/Vol] 4.54 10*6/uL Normal 3.80 - 5.1 0 10*6/uL [place] [employer].; [place] [employer], [employer]. WBC (Bld) [#/Vol] 6.5 10*3/uL Normal 3.8 - 10.8 10*3/uL [place] [employer].; [employer], [employer]. Laboratory - Chemistry and C hemistry - challengeon 02-25-2012 Beta HCG ( test) Ql (U) Negative Normal [facility] [employer].; [employer]. Bilirubin Ql (U) Negative Normal [facility] [employer].; [employer]. Ketones Ql (U) Negative Normal [facility] [employer]. pH (U) 5.5 [pH] Normal 4.6 - 8.0 [place] [employer].; [employer]. Specific gravity (U) [Rel density] 1.030 Abnormal 1.001 - 1.025 [place] [employer].; [employer]. Laboratory - Hematology and Cell countson 02-25-2012 Hemoglobin Ql (U) trace, non-hemolyzed Abnormal [employer].; [employer]. Laboratory - Specimen inform ationon 02-25-2012 Appearance (U) clear Normal [facility].; [employer]. Color (U) yellow Normal [place] [employer].; [employer]. Laboratory - Urinalysison Glucose Test strip (U) [Mass/Vol] Negative Normal [place] [employer].; [employer]. Leukocyte esterase Test strip Ql (U) Negative Normal [employer].; [employer]. Nitrite Ql (U) Negative Normal [facility].; [employer]. Protein Ql (U) trace Normal [facility].; [employer]. No Panel Informationon 02-24 UA - UROBILINOGEN 0.2 mg/dL Normal [employer].; [employer]. Laboratory - Chemistry and C hemistry - challengeon 05-26-2011 Beta HCG ( test) Ql (U) Negative Normal [employer].; [employer]. Vital Signs Date Time Vital Sign Value Performing Clinician Faci lity 04-11-2025 15:47-0400 Body temperature 97.5 [degF] Dr. Navi Kebede MD Work Phone: [facility] 04-11-2025 15:47-0400 Diastolic blood pressure 70 mm[Hg] Dr. Navi Kebede MD Work Phone: [facility] 04-11-2025 15:47-0400 Heart rate 71 /min Dr. Navi Kebede MD Work Phone: [facility] 04-11-2025 15:47-0400 Respiratory rate 18 /min Dr. Navi Kebede MD Work Phone: [facility] 04-11-2025 15:47-0400 SaO2% (BldA) [Mass fraction] 100 % Dr. Navi Kebede MD Work Phone: [facility] 04-11-2025 15:47-0400 Systolic blood pressure 103 mm[Hg] Dr. Navi Kebede MD Work Phone: [facility] 04-11-2025 13:47-0400 Body height 157.[address] Navi Kebede MD Work Phone: [facility] 04-11-2025 13:47-0400 Body mass index (BMI) [Ratio] 22.6 kg/m2 Dr. Navi Kebede MD Work Phone: [facility] 04-11-2025 13:47-0400 Body weight [address] Navi Kebede MD Work Phone: [facility] 12-12-2024 14:11-0400 Body height 160.02 cm Katlyn Charles LPN [facility], [facility].; [facility], [facility]. 12-12-2024 14:11-0400 Body mass index (BMI) [Ratio] 23.21 kg/m2 Katlyn Charles LPN [facility], [facility].; [facility], [facility]. 12-12-2024 14:11-0400 Body surface area Derived from formula 1.62 m2 Katlyn Charles LPN [facility], [facility].; [facility], [facility]. 12-12-2024 14:11-0400 Body weight 59.42 kg Katlyn Charles LPN [facility], [facility].; [facility], [facility]. 12-12-2024 14:11-0400 Diastolic blood pressure 87 mm[Hg] Katlyn Basurtoach PARKING TECHNICIAN [facility], [employer].; [employer] [facility]. Comment on above: Patient Position: Sitting; Cuff Location : Left Arm; Cuff Size: Standard 12-12-2024 14:11-0400 Heart rate 67 /min Katlyn Perry Melvin LOERA [facility], [facility].; [employer] Comment on above: Pattern: Regular 12-12-2024 14:11-0400 Systolic blood pressure 138 mm[Hg] Katlyn Charles [facility], Inc.; [employer] Comment on above: Patient Position: Sitting; Cuff Location : Left Arm; Cuff Size: Standard 09-26-2024 [id number] Body height 160.02 cm Madelin [facility], [facility].; [employer] 09-26-2024 11:28-0500 Body mass index (BMI) [Ratio] 22.57 kg/m2 [facility], [facility].; [employer] 09-26-2024 11:28-0500 Body surface area Derived from formula 1.6 m2 [facility], [facility].; [employer], [employer]. 09-26-2024 11:28-0500 Body temperature 99.5 [degF] Madelin [facility], [facility].; [employer], [employer]. Comment on above: Method: Tympanic 09-26-2024 [id number] Body weight 57.79 kg [facility], [facility].; [employer]. 09-26-2024 11:28-0500 Diastolic blood pressure 85 mm[Hg] Madelin [facility]Jackson [facility], [facility].; [employer]. Comment on above: Patient Position: Sitting; Cuff Location : Left Arm; Cuff Size: Standard 09-26-2024 11:28-0500 Heart rate 89 /min Madelin Theojayson [facility], [employer].; [employer]. Comment on above: Pattern: Regular 09-26-2024 11:28-0500 Systolic blood pressure 133 mm[Hg] Madelin Paulley [facility], [facility].; [facility], [facility]. Comment on above: Patient Position: Sitting; Cuff Location : Left Arm; Cuff Size: Standard 02-29-2024 10:27-0400 Body height 160.02 cm Katlyn Perry Melvin PARKING TECHNICIAN [facility], [facility].; [facility] 02-29-2024 10:27-0400 Body mass index (BMI) [Ratio] 22.67 kg/m2 Katlyn Perry Melvin [facility], [facility].; [facility]. 02-29-2024 10:27-0400 Body surface area Derived from formula 1.6 m2 Katlyn Vicky Melvin [facility], [facility].; [facility], [facility]. 02-29-2024 10:27-0400 Body weight 58.06 kg Katlyn Vicky Charles PARKING TECHNICIAN [facility], [facility].; [facility], [facility]. 02-29-2024 10:27-0400 Diastolic blood pressure 80 mm[Hg] Katlyn Vicky Charles [facility].; [facility], [facility]. Comment on above: Patient Position: Sitting; Cuff Location : Left Arm; Cuff Size: Standard 02-29-2024 10:27-0400 Heart rate 92 /min Katlyn Vicky Charles PARKING TECHNICIAN [facility], [facility].; [facility], [facility] Comment on above: Pattern: Regular 02-29-2024 10:27-0400 Systolic blood pressure 129 mm[Hg] Katlyn Perry Melvin PARKING TECHNICIAN [facility], [facility].; [facility], [facility]. Comment on above: Patient Position: Sitting; Cuff Location : Left Arm; Cuff Size: Standard 12-04-2023 13:12-0400 Body height 160.02 cm Esther Álvarez LPN [facility], [facility].; [facility], [facility]. 12-04-2023 13:12-0400 Body mass index (BMI) [Ratio] 22.85 kg/m2 Esther Álvarez LPN [facility], [facility].; [facility], [facility]. 12-04-2023 13:12-0400 Body surface area Derived from formula 1.61 m2 Esther Álvarez [facility], [facility].; [employer] [facility], Inc[facility] 12-04-2023 13:120400 Body weight 58.51 kg Esther Álvarez LPN [facility], Inc.; [facility], Inc[facility] 12-04-2023 13:120400 Diastolic blood pressure 75 mm[Hg] Esther Álvarez PARKING TECHNICIAN [facility], [facility].; [employer] Comment on above: Patient Position: Sitting; Cuff Location : Left Arm; Cuff Size: Standard 12-04-2023 13:12-0400 Heart rate 76 /min Esther Álvarez LPN [facility] [employer] [facility], [facility].; [employer] Comment on above: Pattern: Regular 12-04-2023 13:12-0400 Systolic blood pressure 115 mm[Hg] Esther Álvarez PARKING TECHNICIAN [facility], [facility].; [employer] Comment on above: Patient Position: Sitting; Cuff Location : Left Arm; Cuff Size: Standard 06-12-2022 13:160400 Body height 160.02 cm Katlyn Charles PARKING TECHNICIAN [facility], [facility].; [employer] 06-12-2022 13:160400 Body mass index (BMI) [Ratio] 21.08 kg/m2 Katlyn Perry Melvin [facility].; [employer], [employer] 06-12-2022 13:160400 Body surface area Derived from formula 1.55 m2 Katlyn Charles PARKING TECHNICIAN [facility], [facility].; [employer] 06-12-2022 13:160400 Body weight 53.98 kg Katlyn Charles PARKING TECHNICIAN [place] [employer], [facility].; [employer], [employer] 06-12-2022 13:16-0400 Diastolic blood pressure 79 mm[Hg] Katlyn Charles [facility], [facility].; [employer], [employer] Comment on above: Patient Position: Sitting; Cuff Location : Left Arm; Cuff Size: Standard 06-12-2022 13:160400 Heart rate 60 /min Katlyn Charles PARKING TECHNICIAN [facility], [facility].; [employer]. Comment on above: Pattern: Regular 06-12-2022 13:16-0400 Systolic blood pressure 129 mm[Hg] Kat[facility], [employer].; [employer]. Comment on above: Patient Position: Sitting; Cuff Location : Left Arm; Cuff Size: Standard 11-28-2019 14:42-0400 Body height 160.02 cm Lorna West [facility].; [employer]. 11-28-2019 14:42-0400 Body mass index (BMI) [Ratio] 20.73 kg/m2 Lorna West [facility], [facility].; [employer]. 11-28-2019 14:42-0400 Body surface area Derived from formula 1.54 m2 Lorna West [facility], [employer].; [employer]. 11-28-2019 14:42-0400 Body weight 53.07 kg Lorna West [facility], [employer].; [employer]. 11-28-2019 14:42-0400 Diastolic blood pressure 83 mm[Hg] Lorna West [facility], [facility].; [employer]. Comment on above: Patient Position: Sitting; Cuff Location : Left Arm; Cuff Size: Standard 11-28-2019 14:42-0400 Heart rate 62 /min Lorna West LPN [facility], [employer].; [employer]. Comment on above: Pattern: Regular 11-28-2019 14:42-0400 Systolic blood pressure 121 mm[Hg] Lorna West LPN [place] [facility], [facility].; [employer]. Comment on above: Patient Position: Sitting; Cuff Location : Left Arm; Cuff Size: Standard 02-11-2017 13:55-0400 Body height 160.02 cm Adriana Yen LPN Work Phone: [employer] [facility].; [employer]. 02-11-2017 13:55-0400 Body mass index (BMI) [Ratio] 19.84 kg/m2 Adriana Yovana PARKING TECHNICIAN Work Phone: [employer].; [employer]. 02-11-2017 13:55-0400 Body surface area Derived from formula 1.51 m2 Adriana Yovana PARKING TECHNICIAN Work Phone: [employer].; [employer]. 02-11-2017 13:55-0400 Body weight 50.8 kg Adriana Yovana PARKING TECHNICIAN Work Phone: [employer].; [employer]. 02-11-2017 13:55-0400 Diastolic blood pressure 80 mm[Hg] Adriana Yovana PARKING TECHNICIAN Work Phone: [employer].; [employer]. Comment on above: Patient Position: Sitting; Cuff Location : Left Arm; Cuff Size: Standard 02-11-2017 13:55-0400 Heart rate 62 /min Adriana Yovana PARKING TECHNICIAN Work Phone: [employer].; [employer]. Comment on above: Pattern: Regular 02-11-2017 13:55-0400 Systolic blood pressure 116 mm[Hg] Adriana Yen PARKING TECHNICIAN Work Phone: [employer].; [employer]. Comment on above: Patient Position: Sitting; Cuff Location : Left Arm; Cuff Size: Standard 12-03-2016 10:06-0400 Body temperature 98.8 [degF] Yosvany Barragan MD Work Phone: [employer]; [employer]. Comment on above: Method: Tympanic 12-03-2016 10:06-0400 Body weight 51.71 kg Yosvany Barragan MD Work Phone: [employer].; [employer]. 12-03-2016 10:06-0400 Diastolic blood pressure 83 mm[Hg] Yosvany Barragan MD Work Phone: [employer].; [employer]. Comment on above: Patient Position: Sitting; Cuff Location : Left Arm; Cuff Size: Standard 12-03-2016 10:06-0400 Heart rate 82 /min Yosvany Barragan MD Work Phone: [employer].; [employer]. Comment on above: Pattern: Regular 12-03-2016 10:06-0400 Systolic blood pressure 139 mm[Hg] Yosvany Barragan MD Work Phone: [employer].; [employer]. Comment on above: Patient Position: Sitting; Cuff Location : Left Arm; Cuff Size: Standard 10-18-2015 15:31-0500 Body weight 50.8 kg Yosvany Barragan MD Work Phone: [employer].; [employer]. 10-18-2015 15:31-0500 Diastolic blood pressure 76 mm[Hg] Yosvany Barragan MD Work Phone: [employer].; [employer]. Comment on above: Patient Position: Sitting; Cuff Location : Left Arm; Cuff Size: Standard 10-18-2015 15:31-0500 Heart rate 71 /min Yosvany Barragan MD Work Phone: [employer].; [employer]. Comment on above: Pattern: Regular 10-18-2015 15:31-0500 Systolic blood pressure 124 mm[Hg] Yosvany Barragan MD Work Phone: [employer].; [employer]. Comment on above: Patient Position: Sitting; Cuff Location : Left Arm; Cuff Size: Standard 10-04-2015 17:46-0500 Body height 160.02 cm Asha Snider LPN [employer], [employer].; [employer]. 10-04-2015 17:46-0500 Body mass index (BMI) [Ratio] 19.31 kg/m2 Asha Yaquelin Snider LPN [employer].; [employer]. 10-04-2015 17:46-0500 Body surface area Derived from formula 1.49 m2 Asha Snider LPN [employer], [employer].; [employer]. 10-04-2015 17:46-0500 Body weight 49.44 kg Ashasa Yaquelin Snider LPN [employer].; [employer]. 10-04-2015 17:46-0500 Diastolic blood pressure 86 mm[Hg] Asha K Mutersbaugh PARKING TECHNICIAN [facility] [employer].; [employer]. Comment on above: Patient Position: Sitting; Cuff Location : Left Arm; Cuff Size: Standard 10-04-2015 17:46-0500 Heart rate 66 /min Asha K Mutersbaugh PARKING TECHNICIAN [employer] [employer].; [employer]. Comment on above: Pattern: Regular 10-04-2015 17:46-0500 Systolic blood pressure 144 mm[Hg] Asha K Mutersbaugh PARKING TECHNICIAN [employer] [place] [employer].; [employer]. Comment on above: Patient Position: Sitting; Cuff Location : Left Arm; Cuff Size: Standard 02-25-2012 11:25-0400 Body temperature 98.6 [degF] Adriana Yovana PARKING TECHNICIAN Work Phone: [employer] [place] [employer].; [employer]. Comment on above: Method: Tympanic 02-25-2012 11:25-0400 Body weight 47.17 kg Adriana Yovana PARKING TECHNICIAN Work Phone: [employer].; [employer]. 02-25-2012 11:25-0400 Diastolic blood pressure 72 mm[Hg] Adriana Yovana PARKING TECHNICIAN Work Phone: [employer].; [employer]. Comment on above: Patient Position: Sitting; Cuff Location : Left Arm; Cuff Size: Standard 02-25-2012 11:25-0400 Heart rate 63 /min Adriana Yovana PARKING TECHNICIAN Work Phone: [employer].; [employer]. Comment on above: Pattern: Regular 02-25-2012 11:25-0400 Systolic blood pressure 127 mm[Hg] Adriana Yovana PARKING TECHNICIAN Work Phone: [employer].; [employer]. Comment on above: Patient Position: Sitting; Cuff Location : Left Arm; Cuff Size: Standard 09-18-2011 12:05-0500 Body height 160.02 cm Adriana Yen LPN Work Phone: [employer]; [employer]. 09-18-2011 12:05-0500 Body mass index (BMI) [Ratio] 17.36 kg/m2 Adriana Yen LPN Work Phone: [employer] 09-18-2011 12:05-0500 Body surface area Derived from formula 1.43 m2 Adriana Yen LPN Work Phone: [employer]; [employer] 09-18-2011 12:05-0500 Body weight 44.45 kg Adriana Yen LPN Work Phone: [employer]; [employer] 09-18-2011 12:05-0500 Diastolic blood pressure 82 mm[Hg] Adriana Yen LPN Work Phone: [employer]; [employer]. Comment on above: Patient Position: Sitting; Cuff Location : Left Arm; Cuff Size: Standard 09-18-2011 12:05-0500 Heart rate 81 /min Adriana Yen LPN Work Phone: [employer]; [employer] Comment on above: Pattern: Regular 09-18-2011 12:05-0500 Systolic blood pressure 128 mm[Hg] Adriana Yen LPN Work Phone: [employer]; [employer] Comment on above: Patient Position: Sitting; Cuff Location : Left Arm; Cuff Size: Standard 05-26-2011 13:18-0400 Body height 160.02 cm Yosvany Barragan MD Work Phone: [employer]; [employer] 05-26-2011 13:18-0400 Body mass index (BMI) [Ratio] 19.31 kg/m2 Yosvany Barragan MD Work Phone: [employer]; [employer] 05-26-2011 13:18-0400 Body surface area Derived from formula 1.49 m2 Yosvany Barragan MD Work Phone: [employer].; [employer]. 05-26-2011 13:18-0400 Body weight 49.44 kg Yosvany Barragan MD Work Phone: [employer].; [employer]. 05-26-2011 13:18-0400 Diastolic blood pressure 70 mm[Hg] Yosvany Barragan MD Work Phone: [employer].; [employer]. Comment on above: Patient Position: Sitting; Cuff Location : Left Arm; Cuff Size: Standard 05-26-2011 13:18-0400 Heart rate 69 /min Yosvany Barragan MD Work Phone: [employer]; [employer]. Comment on above: Pattern: Regular 05-26-2011 13:18-0400 Systolic blood pressure 106 mm[Hg] Yosvany Barragan MD Work Phone: [employer].; [employer]. Comment on above: Patient Position: Sitting; Cuff Location : Left Arm; Cuff Size: Standard 04-24-2011 13:55-0400 Body height 160.02 cm Yosvany Barragan MD Work Phone: [employer].; [employer]. 04-24-2011 13:55-0400 Body mass index (BMI) [Ratio] 17.36 kg/m2 Yosvany Barragan MD Work Phone: [employer].; [employer]. 04-24-2011 13:55-0400 Body surface area Derived from formula 1.43 m2 Yosvany Barragan MD Work Phone: [employer]; [employer]. 04-24-2011 13:55-0400 Body weight 44.45 kg Yosvany Barragan MD Work Phone: [employer]; [employer]. 04-24-2011 13:55-0400 Diastolic blood pressure 70 mm[Hg] Yosvany Barragan MD Work Phone: [facility]; [employer] [employer] Comment on above: Patient Position: Sitting; Cuff Location : Left Arm; Cuff Size: Standard 04-24-2011 13:55-0400 Heart rate 61 /min Yosvany Barragan MD Work Phone: [place] [employer]; [employer] Comment on above: Pattern: Regular 04-24-2011 13:55-0400 Systolic blood pressure 105 mm[Hg] Yosvany Barragan MD Work Phone: [facility] [employer]; [employer] [employer] Comment on above: Patient Position: Sitting; Cuff Location : Left Arm; Cuff Size: Standard Encounters Encounter Date Encounter Type Care Provider Facility Start: 04-12-2025 End: 04-12-2025 Historical Summary Leeann [facility]agat PA-C [facility] Start: 04-11-2025 ambulatory Willy Boyle Facility :[facility] Start: 04-11-2025 Non-patient / Non-visit Willybhavesh Boyle DO -[facility] Start: 04-11-2025 End: 04-11-2025 Admission to same day surgery center Willy Boyle DO -Endoscopy Work Phone: Start: 04-11-2025 End: 04-11-[address] Navi Kebede MD Work Phone: -Endoscopy Start: 03-16-2025 ambulatory Navi Kebede Facility :[facility] Start: 12-16-2024 End: 12-16-2024 Patient [facility] Work Phone: Start: 12-16-2024 End: 12-16-2024 ambulatory Navi Kebede Facility:[facility] Start: 12-12-2024 End: 12-12-2024 Patient encounter status Katlyn Charles LPN [place] [facility]; [employer] [employer] Start: 12-12-2024 End: 12-12-2024 Periodic preventive med est patient 40-64yrs Yosvany Barragan MD [facility] Start: 09-29-2024 End: 09-29-2024 Medication Yosvany Barragan MD Work Phone: [facility] Start: 09-29-2024 End: 09-29-2024 Orders [facility]osvany Barragan MD [facility] Start: 09-28-2024 End: 09-28-2024 ambulatory [facility] Start: 09-28-2024 End: 09-28-2024 Orders Yosvany Barragan MD [facility] Start: 09-28-2024 End: 09-28-2024 ambulatory [facility] Start: 09-26-2024 Review Yosvany diallo MD [facility] Start: 09-26-2024 End: 09-26-2024 Office outpatient visit 15 minutes Yosvany Barragan MD [facility] Start: 09-26-2024 ambulatory [facility] Start: 09-26-2024 Admission to same day surgery center Yosvany Barragan MD Work Phone: [facility] Start: 09-24-2024 End: 09-24-2024 ambulatory LOBO TATUM Facility:[facility] Start: 09-24-2024 End: 09-24-2024 ambulatory NONE NONE Facility:[facility] Start: 02-29-2024 End: 02-29-2024 ambulatory [facility] Start: 02-29-2024 End: 02-29-2024 Office outpatient visit 15 minutes Yosvany Barragan MD [facility] Start: 12-04-2023 End: 12-04-2023 Patient encounter status Yosvany Barragan MD Work Phone: [employer] [employer] Start: 12-04-2023 End: 12-04-2023 Periodic preventive med est patient 40-64yrs Yosvany Barragan MD Work Phone: [employer] Start: 12-04-2023 Patient encounter status Esther Álvarez PARKING TECHNICIAN [employer]. Start: 12-04-2023 Review Yosvany diallo MD Work Phone: [employer] Start: 07-28-2022 End: 07-28-2022 Orders Yosvany Barragan MD Work Phone: [employer] Start: 06-19-2022 End: 06-19-2022 Orders Yovsany Barragan MD Work Phone: [employer] Start: 06-12-2022 End: 06-12-2022 Patient encounter procedure Yosvany Barragan MD Work Phone: [employer] Start: 06-12-2022 End: 06-12-2022 Patient encounter status Katlyn Charles PARKING TECHNICIAN [employer]; [employer]. Start: 11-28-2019 End: 11-28-2019 Office outpatient visit 15 minutes Yosvany Barragan MD Work Phone: [employer] Start: 02-20-2017 End: 02-20-2017 Historical Summary Yosvany Barragan MD Work Phone: [employer] Start: 02-11-2017 End: 02-11-2017 Patient encounter procedure Yosvany Barragan MD Work Phone: [employer] Start: 02-11-2017 End: 02-11-2017 Patient encounter status Yosvany Barragan MD Work Phone: [employer]; [employer]. Start: 02-10-2017 End: 02-10-2017 Historical Summary Yosvany Barragan MD Work Phone: [employer] Start: 12-03-2016 End: 12-03-2016 Office outpatient visit 15 minutes Yosvany Barragan MD Work Phone: [employer] Start: 10-18-2015 End: 10-18-2015 Patient encounter procedure Yosvany Barragan MD Work Phone: [employer]. Start: 10-18-2015 End: 10-18-2015 Orders Yosvany Barragan MD Work Phone: [employer]. Start: 10-15-2015 End: 10-15-2015 Orders Yosvany Barragan MD Work Phone: [employer] Start: 10-04-2015 End: 10-04-2015 Office outpatient visit 15 minutes Yosvany Barragan MD Work Phone: [employer] Start: 02-25-2012 End: 02-25-2012 Patient encounter procedure Yosvany Barragan MD Work Phone: [employer] Start: 09-18-2011 End: 09-18-2011 Patient encounter procedure Yosvany Barragan MD Work Phone: [employer] Start: 07-15-2011 End: 07-15-2011 Office outpatient visit 5 minutes Yosvany Barragan MD Work Phone: [employer] Start: 05-26-2011 End: 05-26-2011 Patient encounter procedure Yosvany Barragan MD Work Phone: [employer] Start: 04-24-2011 End: 04-24-2011 Patient encounter procedure Yosvany aBrragan MD Work Phone: [employer]. Start: 05-23-2010 End: 05-23-2010 Historical Summary Yosvany Barragan MD Work Phone: [employer] Patient encounter status Lorna West LPN [employer]. Patient encounter status Katlyn Charles LPN [facility], [facility].; [facility], [facility]. Patient encounter status Madelin Knight [facility].; [facility]. Procedures Date Procedure Procedure Detail Performing Clinician Start: 04-11-[address] Navi Kebede MD Work Phone: Start: 04-11-2025 End: 04-11-2025 Screening colonoscopy Adriana Colemany PARKING TECHNICIAN Work Phone: Comment on above: ulcerative colitis, Dr [place] king one year Start: 12-12-2024 End: 12-12-2024 Depression screening Leeann Wilbert Bhagat PA -C Work Phone: Start: 12-12-2024 End: 12-12-2024 Scr dep neg, no plan reqd Leeann Wilbert Palm er PA-C Work Phone: Start: 09-26-2024 End: 09-28-2024 Ct abdomen & pelvis w/contrast material Leeann Atkins Bhagat PA-C Work Phone: Start: 12-04-2023 End: 12-04-2023 Depression screening Leeann Wilbert Bhagat PA -C Work Phone: Start: 12-04-2023 End: 12-04-2023 Pos clin depres scrn f/u doc Leeann Munguia almer PA-C Work Phone: Start: 12-04-2023 End: 12-04-2023 Scr dep neg, no plan reqd Leeann Wilbert Palm er PA-C Work Phone: Start: 06-12-2022 End: 06-12-2022 Depression screening Eleann J Bhagat PA -C Work Phone: Start: 06-12-2022 End: 06-12-2022 Lab findings surveillance Etsher márquez PARKING TECHNICIAN Start: 06-12-2022 End: 06-12-2022 Scr dep neg, no plan reqd Leeann J Palm er PA-C Work Phone: Start: 06-12-2022 End: 07-26-2022 Screening digital breast tomosynthesis bi Leeann Wilbert Bhagat PA-C Work Phone: Start: 06-12-2022 End: 07-23-2022 Us pelvic nonobstetric real-time image complete Leeann Atkins Olayinka TILLEY Work Phone: Start: 02-12-2017 End: 02-12-2017 Echocardiography Lorna West LPN Comment on above: 02/2017 neg (new hear t murmur) Start: 02-11-2017 End: 02-20-2017 Echo tthrc r-t 2d w/wom-mode compl spec&colr d Yosvany Barragan MD Work Phone: Start: 02-11-2017 End: 02-11-2017 Microscopic examination of cervical Papanicolaou smear Esther Álvarez LPN Comment on above: Normal. 05/15/10 neg, 02/11/17 neg Start: 10-04-2015 End: 10-15-2015 Xtrnl ecg & 48 hr record scan stor w/r&i Katlyn Aburto MD Work Phone: Start: 02-25-2012 End: 03-04-2012 Us pelvic nonobstetric real-time image complete Yosvany Barragan MD Work Phone: Start: 09-18-2011 End: 09-22-2011 Us pelvic nonobstetric real-time image complete Katlyn Aburto MD Work Phone: Comment on above: IUD placed in Sept 2 011 (Mirena) and strings are barely visible at cervical os; pt tender in left adnexa; confirm normal position Lipid panel Esther ridley LPN Comment on above: never Lipid panel Katlyn Dee ch, LPN Comment on above: never No history of procedure Oracio Charles LPN No history of procedure Oracio Charles LPN Plan of Treatment Date Care Activity Detail Author Start: 04-11-2025 Clostridioides diffi cile (PCR) Clostridioides difficile (PCR) [facility] Start: 04-11-2025 Enteric Bacteriology Enteric Bacteri ology [facility] Start: 04-11-2025 Patient discharge [facility] Start: 12-12-2024 Screening digital br east tomosynthesis bi Mammogram 3D (tomosynthesis), bilateral (80640) Start: 12-Dec-2024 Intent [employer]; [employer] Start: 12-12-2024 Cytp c/v auto thin l yr prepj scr mnl rescr phys ThinPrep Pap Test AND HPV mRNA ([id number]) (95829) Start: 12-Dec-2024 09:05-04:00 Request [employer] Start: 09-29-2024 Us pelvic nonobstetr ic real-time image complete Pelvic Ultrasound (66078) Start: 29-Sep-2024 Intent [employer]; [employer]. Start: 09-28-2024 Iaad ia mult step me thod nos each organism Clostridium difficile Toxin/GDH with Reflex to PCR ([id number]) Start: 28-Sep-2024 11:47-05:00 Request [employer]; [employer]. Start: 09-26-2024 End: 09-26-2024 Ct abdomen & pelvis w/contrast material [employer]; [employer]. Start: 02-29-2024 Radiologic exam knee complete 4/more views Knee x-ray, Left Complete (64638) Start: 29-Feb-2024 Intent [employer]; [employer] Start: 12-04-2023 Provider Instruction s for Treatment [facility] HM Issues, 40-49 female Indication: Encounter for routine gynecological examination, 40-49 (Renamed from Encounter for routine gynecological examination) Start: 04-Dec-2023 Instruction Type: Provider Instructions for Treatment [employer] Start: 12-04-2023 Cytp cerv/vag auto t hin layer prep mnl screen [employer]; [employer]. Start: 07-28-2022 Us breast uni real t ina with image limited Breast US, Bilateral Complete ([id number]) Start: 28-Jul-2022 Intent [employer]; [employer] Start: 11-28-2019 transvaginal TRANSVAGINAL NON-OBSTETRICAL PELVIC ULTRASOUND (47943) Start: 28-Nov-2019 Intent Comments: Please remark on endometrial thickness [facility]; [facility] Work Phone: Comment on above: Please remark on end ometrial thickness Clostridioides diffi cile DNA [Presence] in Unspecified specimen by KAYY with probe detection [facility] Nucleic acid assay [facility] Protein measurement [facility] Immunizations Immunization Date Immunization Notes Care Provider Fa cility 12-28-2020 COVID-Moderna (100 MCG/0.5 ML) Yosvany Barragan MD Work Phone: [facility]; [facility] 07-15-2011 influenza, seasonal, injectable Yosvany Barragan MD Work Phone: [facility]; [facility] Comment on above: Site: Deltoid (Left) VIS Given: * Inactivated Influenza Vaccine (04/24/09) * Inactivated Influenza Vaccine (04/08/11) * Inactivated Influenza Vaccine (04/08/11) * Inactivated Influenza Vaccine (04/08/11) * Inactivated Influenza Vaccine (04/08/11) * Inactivated Influenza Vaccine (04/08/11) * Inactivated Influenza Vaccine (04/08/11) * VIS Given (Unspecified) * VIS Given (Unspecified) 07-15-2011 IMMUNIZATION ADMIN ([id number]) Yosvany Barragan MD Work Phone: [facility]; [facility] Payers Date Payer Category Payer Self-pay 2024 Unknown [id number] 1975 Unknown [id number] 2.16.8 [id number] 1975 Unknown [id number] 2.16.8 [id number] 1975 Unknown [id number] 2.16.8 [id number] 1975 Unknown [id number] 2.16.8 [id number] 1975 Unknown [id number] 2.16.8 [id number] Medicaid [id number] Unknown [employer] Unknown [id number] 2.16.8 [id number] Unknown [id number] 2.16.8 [id number] Unknown [id number] 2.16.8 [id number] Unknown [id number] 2.16.8 [id number] Social History Date Type Detail Facility Child(capo) Child(capo) [facility]; [facility] Primary Control Method: Primary Control Method: ; Intrauterine device. [facility]; [facility], [facility] Tobacco Use: Tobacco Use: ; N ever smoker. [facility]; [facility] Start: [address] [facility] Start: 04-06-2025 Never smoked tobacco [facility] Intrauterine device [facility]; [facility] Work Phone: NEGATED: Highlighted row Not [facility] Goals Date Patient Goal Desired Activity /State Mental Status Date Assessment Result Facility 04-11-2025 Cognitive function Level Of Consciousness Drowsy [facility] Work Phone: 04-11-2025 Cognitive function Voice/Name [facility] Work Phone: Clinical Notes 12-16-2024 to 04-11-2025 Note Date & Type Note Facility 04-11-2025 Consult note Note Date/Time April 11, 2025 2:15pm [facility] Medical Records Department [address] [place] [address] Pre-Anesthesia Evaluation 04/11/25 1410 MR#: [id number] Acct: [id number] Name: SRINATH HAWK Rep #:[id number] : 1975 50 From: Shailesh Gomez MD PCP: [facility] Status:REG SDC Y Race: C Location: [address] ASA Classification* ASA Classification ASA Classification: 1 Assessment & Plan Anesthesia* Anesthesia Assessment Anesthesia Assessment: Discussed sedation and/or anesthesia options, risks, benefits, and alternatives with patient/parents/legal guardian/POA. Questions invited. The patient/parents/legal guardian/POA seems to understand and agrees to proceedwith anesthesia plan. Reviewed the physical assessment, medical history, allergy history and patient home medications list prior to surgery/procedure/anesthetic and documented any changes. Performed airway and anesthesia risk assessments. Anesthesia Type Anesthesia Type: MAC History Source History Obtained from:: Patient and Chart Anesthesia Focused Assessment* Temperature: 98.1 F Pulse Rate: 104 Blood Pressure: 140/93 Respiratory Rate: 16 Pulse Ox: 100 Oxygen Delivery Method: Room Air Airway Assessment Mouth opens: >3 cm Mallampati Score: III Teeth Condition: Intact Neck Range of motion (ROM): Full ROM Labs Anesthesia Preop lab: CBC CHEMISTRY COAG Pre-Assessment Diagnosis/Proposed Procedure Planned Operative Procedure(s): COLONOSCOPY Anesthesia History Anesthesia History - diagnostic imaging manager: Anesthesia History - diagnostic imaging manager Hx Hospitalization No 04/06/25 11:27 Any Problems With Anesthesia No 04/06/25 11:27 Cholinesterase deficiency No 04/06/25 11:27 You/Your Family Experience No: UNSURE ADOPTED 04/06/25 11:27 fever (hyperthermia) with Relationship Recent Exposure to Contagious No 04/11/25 13:47 Disease Does patient have nerve No 04/06/25 11:27 stimulator Patient instructed to have device shut off --Does patient have Pacemaker No 04/11/25 13:47 or ICD? When Was Last Pacemaker Check QUESTION #4 FULL TEXT: You/Your Family Experience fever (hyperthermia) with Anesthesia Last Oral Intake Last Oral intake: Last Oral Intake NPO since 10:30 04/11/25 13:47 Meds taken in AM with sips of No 04/11/25 13:47 water? Meds patient instructed to take am of surgery Any additional information?: Yes NPO since: 10:30 (Patient finished her prep at 10:30 AM.) PONV PONV - diagnostic imaging manager: PONV - diagnostic imaging manager Female Yes 04/06/25 11:27 HX of Motion Sickness Yes 04/06/25 11:27 HX of N/V After Surgery No 04/06/25 11:27 Non-Smoker Yes 04/06/25 11:27 Duration of Surgery greater No 04/06/25 11:27 than 60 minutes Number of Risk Factors 3 04/06/25 11:27 PONV Score Moderate Risk 04/06/25 11:27 Height & Weight Height & Weight: Anesthesia: Height & Weight Height 5 ft 2 in 04/11/25 13:47 Weight: 56 kg 04/11/25 13:47 Body Mass Index (BMI) 22.6 04/11/25 13:47 Respiratory Assessment Respiratory Assessment - diagnostic imaging manager: Respiratory Tract Infection Hx - diagnostic imaging manager Hx Respiratory Tract Infection No 04/06/25 11:27 STOP Sleep Apnea STOP Sleep Apnea - diagnostic imaging manager: STOP Sleep Apnea - diagnostic imaging manager Hx Hypertension No 04/06/25 11:27 Hx Sleep Apnea No 04/06/25 11:27 CPAP BIPAP Do you snore loudly (louder No 04/06/25 11:27 than talking or can be heard Do you often feel tired/ No 04/06/25 11:27 fatigued/ sleepy during daytime? Has anyone observed you stop No 04/06/25 11:27 breathing during sleep? STOP Results Negative 04/06/25 11:27 QUESTION #5 FULL TEXT : Do you snore loudly (louder than talking or can be heard through closed doors)? 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 Specify any problems Hx of Preganancy in last 3 No 04/06/25 11:27 Months Nurse Filling Out Transfusion [id number] 04/06/25 11:27 & Questions: Date: 04/06/25 04/06/25 11:27 Time: 11:29 04/06/25 11:27 Patient unable to answer at this time (ie. confused, unrespo /Reproduction History /Reproductive History - diagnostic imaging manager: /Reproductive Hx- diagnostic imaging manager Hx Now No 04/06/25 11:27 Gestational Age (in weeks): EDC: Hx Hx Para Hx Section SAB No 04/06/25 11:27 Active Medications Active Medications: Current Medications Generic Name Dose Route Start Last Admin Trade Name Freq PRN Reason Stop Dose Admin Lactated Ringer's 1,000 mls @ 15 mls/hr 04/11/25 14:00 04/11/25 13:53 IV 15 mls/hr .Q48H ELEAZAR Administration PFSH Medical History (Updated 04/06/25 @ 11:32 by Wes Wallace) Wears contact lenses Migraine headache History of Holter monitoring Home Medications ?Medication ?Instructions ?Recorded ?Last Taken ?Type norgestimate 0.18 mg/0.215mg/0.25 1 tab PO QDAY Unknown History mg-ethinyl estradiol 0.025 mg tablet peg 3350-sod sulf,thfyk-zso-cxu 240 ml PO .COMPLEX #2 mL 12/16/24 Unknown Rx 178.7-7.3-0.5-1.12-0.9 gram oral soln (Suflave) ibuprofen 200 mg tablet (Advil) 400 mg PO Q8H PRN pain 04/06/25 Unknown History Allergy/AdvReac Type Severity Reaction Status Date / Time No Known Allergies Allergy Verified 04/11/25 13:46 no surgical history Social History Smoking Status: Never smoker Review of Systems (Anesthesia) ROS Narrative System reviewed and no additional complaints, except as documented. 04/11/25 1415 <Electronically signed by Shailesh young MD> Date _ Shailesh Gomez MD Cosigner Signature: Date CC: ~ Signed [facility] Work Phone: 1(712) 200-715907-29-2025 Consult note [facility] Medical Records Department [address] [place] [address] Anesthesia Postop Eval I 04/11/25 1540 MR#: [id number] Acct: [id number] Name: SRINATH HAWK Rep #:[id number] : 1975 50 From: Dale Giles CRNA PCP: [facility] Mix Status:REG SDC Y Race: C Location: [place] [address] Anesthesia: Postop Eval I Current Vital Signs Temperature: 97.5 F Pulse Rate: 73 Blood Pressure: 94/69 Respiratory Rate: 15 Pulse Ox: 95 Oxygen Delivery Method: Room Air Assessment Airway patent: Yes Spontaneous unlabored respirations: Yes Mental status: Awake nausea: No Vomiting: No Anesthesia Complication: No Fluid Hydration Crystalloid volume administer (ml): 400 Total IV fluid infused: 400 Progress Note Anesthesia document: Postop Eval 1 completed: Yes 04/11/25 1541 n EGG BREAKER> Date _ Dale Giles EGG BREAKER Cosigner Signature: Date CC: ~ Signed [facility]07-29-2025 Procedure note [facility] Medical Records Department [address] [place] [address] Provation Physician Letter MR#: [id number] Acct: [id number] Name: SRINATH HAWK Rep #:[id number] : 1975 50 From: Willy Boyle DO PCP: [facility] Mix Status:REG SDC 04/11/2025 Leeann Bhagat Re : Colonoscopy procedure for Srinath Hawk Jhon Bhagat This procedure was performed on Friday, April 11, 2025. My impressions and recommendations are as follows: Impressions : - Moderately active (Horner Score 2) pancolitis ulcerative colitis, new since the last examination. Biopsied. - Stool in the sigmoid colon, in the descending colon, in the transverse colon, at the hepatic flexure and in the ascending colon. Fluid aspiration performed. - The examined portion of the ileum was normal. Biopsied. Recommendations : - Discharge patient to home. - Resume previous diet. - Continue present medications. - Await pathology results. - Repeat colonoscopy in 1 year for surveillance based on pathology results. My findings are described in the full procedure note, which is enclosed. If I can be of further assistance, please feel free to contact me at . Sincerely, Willy Boyle DO 04/11/2025 3:39:39 PM This report has been signed electronically. 04/11/25 1539 Date _ Willy Boyle DO Cosigner Signature: Date (if indicated) CC: [facility]; Willy Boyle DO ~ Date Dictated: 04/11/25 1509 Date Transcribed: Musician Instrumental: RF Signed [facility]07-29-2025 Procedure note [facility] Medical Records Department [address] [place] [address] Colonoscopy Report MR#: [id number] Acct: [id number] Name: SRINATH HAWK Rep #:[id number] : 1975 50 From: Willy Boyle DO PCP: [facility] Mix Status:[facility] Patient Name: Srinath Hawk Procedure Date: 04/11/2025 3:09 PM Date of : 1975 Age: 50 Procedure: Colonoscopy Indications: Chronic diarrhea Providers: Willy Boyle DO Referring MD: Leeann Bhagat Medicines: Monitored Anesthesia Care Patient Profile: This is a 50 year old female. Refer to note in patient chart for documentation of history and physical. Last Colonoscopy: none. The patient's first colonoscopy is today. Complications: No immediate complications. Procedure: Pre-Anesthesia Assessment: - Prior to the procedure, a History and Physical was performed, and patient medications and allergies were reviewed. The patient is competent. The risks and benefits of the procedure and the sedation options and risks were discussed with the patient. All questions were answered and informed consent was obtained. Patient identification and proposed procedure were verified by the physician in the pre-procedure area. Mental Status Examination: alert and oriented. Airway Examination: normal oropharyngeal airway and neck mobility. Respiratory Examination: clear to auscultation. CV Examination: normal. Prophylactic Antibiotics: The patient does not require prophylactic antibiotics. Prior Anticoagulants: The patient has taken no anticoagulant or antiplatelet agents except for NSAID medication. ASA Grade Assessment: II - A patient with mild systemic disease. After reviewing the risks and benefits, the patient was deemed in satisfactory condition to undergo the procedure. The anesthesia plan was to use monitored anesthesia care (MAC). Immediately prior to administration of medications, the patient was re-assessed for adequacy to receive sedatives. The heart rate, respiratory rate, oxygen saturations, blood pressure, adequacy of pulmonary ventilation, and response to care were monitored throughout the procedure. The physical status of the patient was re-assessed after the procedure. After I obtained informed consent, the scope was passed under direct vision. Throughout the procedure, the patient's blood pressure, pulse, and oxygen saturations were monitored continuously. The pediatric colonoscope was introduced through the anus and advanced to the terminal ileum. The colonoscopy was performed without difficulty. The patient tolerated the procedure well. The quality of the bowel preparation was adequate. The terminal ileum, ileocecal valve, appendiceal orifice, and rectum were photographed. Scope In: 3:20:40 PM Scope Withdrawal Time 0 hours 6 minutes 9 seconds Scope Out: 3:32:15 PM Total Procedure Duration Time 0 hours 11 minutes 35 seconds Findings: The perianal and digital rectal examinations were normal. Inflammation was found in a continuous and circumferential pattern from the anus to the cecum. This was graded as Horner Score 2 (moderate, with marked erythema, absent vascular pattern, friability, erosions), and when compared to the previous examination, the findings are new. Biopsies were taken with a cold forceps for histology. Verification of patient identification for the specimen was done. Estimated blood loss was minimal. Liquid stool was found in the sigmoid colon, in the descending colon, in the transverse colon, at the hepatic flexure and in the ascending colon, without interference to visualization. Fluid aspiration was performed through the scope suction channel. The amount of fluid collected was 60 mL. Sample(s) were sent for bacterial cultures and Clostridium difficile. The terminal ileum appeared normal. Biopsies were taken with a cold forceps for histology. Verification of patient identification for the specimen was done. Estimated blood loss was minimal. Impression: - Moderately active (Horner Score 2) pancolitis ulcerative colitis, new since the last examination. Biopsied. - Stool in the sigmoid colon, in the descending colon, in the transverse colon, at the hepatic flexure and in the ascending colon. Fluid aspiration performed. - The examined portion of the ileum was normal. Biopsied. Recommendation: - Discharge patient to home. - Resume previous diet. - Continue present medications. - Await pathology results. - Repeat colonoscopy in 1 year for surveillance based on pathology results. Procedure Code(s): --- Professional --- 46421, Colonoscopy, flexible; with biopsy, single or multiple CPT copyright 2021 [employer]. All rights reserved. The codes documented in this report are preliminary and upon fine jewelry sales associate review may be revised to meet current compliance requirements. Willy Boyle DO 04/11/2025 3:39:39 PM This report has been signed electronically. Number of Addenda: 0 Note Initiated On: 04/11/2025 3:09 PM 04/11/25 1539 Date _ Willy Langstonignallison Signature: Date (if indicated) CC: REID Mix; Willy Boyle DO ~ Date Dictated: 04/11/25 1509 Date Transcribed: Musician Instrumental: RF Signed [facility]07-29-2025 History and physical note [facility] Medical Records Department [address] [place] [address] History & Physical Exam 04/11/25 1506 MR#: [id number] Acct: [id number] Name: SRINATH HAWK Rep #:[id number] : 1975 50 From: Willy Boyle DO PCP: REID Mix Status[place] [facility] [place] Location: [place] [address] HPI - General General Date of Admission: 04/11/25 Date of Service: 04/11/25 Chief Complaint: Diarrhea HPI Narrative SRINATH HAWK, is a 50 F who presents with the Chief Complaint: diarrhea Pt went on a cruise in Sep 2024 and two hours after eating lobster for dinner she started having sever nausea, vomiting and diarrhea. She was seen on by on the ship and was given an IV antibioticand zofran. This eventually resolved however her bowels have not gone back to normal. She was someone who had a bm every few days. Now she has small stools multiple times per day. This is bothersome to her as it interrupts her at her job. All stool testing for infection has been normal. She has never had a colonoscopy before [facility] Medical History Wears contact lenses Migraine headache History of Holter monitoring Home Medications ?Medication ?Instructions ?Recorded ?Last Taken ?Type norgestimate 0.18 mg/0.215mg/0.25 1 tab PO QDAY Unknown History mg-ethinyl estradiol 0.025 mg tablet peg 3350-sod sulf,pndvv-aqt-jzg 240 ml PO .COMPLEX #2 mL 12/16/24 Unknown Rx 178.7-7.3-0.5-1.12-0.9 gram oral soln (Suflave) ibuprofen 200 mg tablet (Advil) 400 mg PO Q8H PRN pain 04/06/25 Unknown History Allergy/AdvReac Type Severity Reaction Status Date / Time No Known Allergies Allergy Verified 04/11/25 13:46 Surgical History no surgical history Social History Smoking Status: Never smoker ROS Constitutional Constitutional: Denies fatigue, fever(s), poor appetite, weight gain or weight loss Gastrointestinal Gastrointestinal: Denies belching, bloating, change in bowel habits, change in stool character, chewing difficulty, coffee ground emesis, constipation, cramping, diarrhea, dyspepsia, dysphagia, earlysatiety, excessive flatus, fecalincontinence, heartburn, hematemesis, hematochezia, hemorrhoids, loose stools, melena, nausea, odynophagia, rectal bleeding, tenesmus, vomiting or weight changes Vital Signs Vital Signs Vital Signs: 04/11/25 13:47 04/11/25 13:47 04/11/25 14:15 Temperature 98.1 F 98.1 F Temperature Source Temporal Pulse Rate 104 H 104 H Respiratory Rate 16 16 Respiratory Pattern Normal Blood Pressure 140/93 H 140/93 H Blood Pressure Mean 108 Blood Pressure Source Monitor Blood Pressure Position Semi-Fowlers Blood Pressure Location Left Arm Pulse Ox 100 100 Oxygen Delivery Method Room Air Room Air Weight Weight: 123 lb 7.342 oz Body Mass Index (BMI) 22.6 Physical Exam Const alert, oriented x3, no apparent distress and healthy appearing General Appearance: cooperative GI normal to inspection, nondistended, normoactive bowel sounds, soft to palpation,non-tender and non-distended Percussion: normal to percussion Rectal Exam: deferred Results Lab / Micro Data Labs: Laboratory Results - last 24 hr 04/11/25 13:50: Serum , Qual NEGATIVE Assessment & Plan Assessment/Plan (1) Diarrhea: PLAN: Assessment and Plan Assessment and Plan (1) Diarrhea: Status: Acute Plan: This is a 49 yo female pt here today for evaluation of changes in her bowel habits. Pt was on a cruise in Sep 2024 when she ate lobster and started vomitingand having diarrhea. Since then she has hadsmall bm multiple times per day which is not normal for her. She has never had a colonoscopy. She will be scheduled for this today. I ordered calprotectin to ensure she does not have inflammation. I recommended she start a fiber supplement daily. -Colonoscopy -calprotectin -start fiber -f/u after procedure 04/11/25 1509 Cosigner Signature (if applicable): CC: REID Mix; Willy Boyle DO~ Signed [facility]07-29-2025 [facility] Medical Records Department [address] [place] [address] History Physical Exam 04/11/25 1506 MR#: [id number] Acct: [id number] Name: SRINATH HAWK Rep #: [id number] : 1975 50 From: Willy Boyle DO PCP: REID Mix Status:[place] [facility] [place] Location: [place] [address] HPI - General General Date of Admission: 04/11/25 Date of Service: 04/11/25 Chief Complaint: Diarrhea HPI Narrative SRINATH HAWK, is a 50 F who presents with the Chief Complaint: diarrhea Pt went on a cruise in Sep 2024 and two hours after eating lobster for dinner she started having sever nausea, vomiting and diarrhea. She was seen on by on the ship and was given an IV antibiotic and zofran. This eventually resolved however her bowels have not gone back to normal. She was someone who had a bm every few days. Now she has small stools multiple times per day. This is bothersome to her as it interrupts her at her job. All stool testing for infection has been normal. She has never had a colonoscopy before [facility] Medical History Wears contact lenses Migraine headache History of Holter monitoring Home Medications ???Medication ???Instructions ???Recorded ???Last Taken ???Type norgestimate 0.18 mg/0.215mg/0.25 1 tab PO QDAY 12/16/24 Unknown Hi story mg-ethinyl estradiol 0.025 mg tablet peg 3350-sod sulf,kkfid-cec-wcg 240 ml PO .COMPLEX #2 mL 12/16/24 Unknown Rx 178.7-7.3-0.5-1.12-0.9 gram oral soln (Suflave) ibuprofen 200 mg tablet (Advil) 400 mg PO Q8H PRN pain 04/06/25 Un known History Allergy/AdvReac Type Severity Reaction Status Date / Time No Known Allergies Allergy Verified 04/11/25 13:46 Surgical History no surgical history Social History Smoking Status: Never smoker ROS Constitutional Constitutional: Denies fatigue, fever(s), poor appetite, weight gain or weight loss Gastrointestinal Gastrointestinal: Denies belching, bloating, change in bowel habits, change in stool character, chewing difficulty, coffee ground emesis, constipation, cramping, diarrhea, dyspepsia, dysphagia, early satiety, excessive flatus, fecal incontinence, heartburn, hematemesis, hematochezia, hemorrhoids, loose stools, melena, nausea, odynophagia, rectal bleeding, tenesmus, vomiting or weight changes Vital Signs Vital Signs Vital Signs: 04/11/25 13:47 04/11/25 13:47 04/11/25 14:15 Temperature 98.1 F 98.1 F Temperature Source Temporal Pulse Rate 104 H 104 H Respiratory Rate 16 16 Respiratory Pattern Normal Blood Pressure 140/93 H 140/93 H Blood Pressure Mean 108 Blood Pressure Source Monitor Blood Pressure Position Semi-Fowlers Blood Pressure Location Left Arm Pulse Ox 100 100 Oxygen Delivery Method Room Air Room Air Weight Weight: 123 lb 7.342 oz Body Mass Index (BMI) 22.6 Physical Exam Const alert, oriented x3, no apparent distress and healthy appearing General Appearance: cooperative GI normal to inspection, nondistended, normoactive bowel sounds, soft to palpation, non-tender and non- distended Percussion: normal to percussion Rectal Exam: deferred Results Lab / Micro Data Labs: Laboratory Results - last 24 hr 04/11/25 13:50: Serum , Qual NEGATIVE Assessment Plan Assessment/Plan (1) Diarrhea: PLAN: Assessment and Plan Assessment and Plan (1) Diarrhea: Status: Acute Plan: This is a 49 yo female pt here today for evaluation of changes in her bowel habits. Pt was on a cruise in Sep 2024 when she ate lobster and started vomiting and having diarrhea. Since then she has had small bm multiple times per day which is not normal for her. She has never had a colonoscopy. She will be scheduled for this today. I ordered calprotectin to ensure she does not have inflammation. I recommended she start a fiber supplement daily. -Colonoscopy -calprotectin -start fiber -f/u after procedure 04/11/25 1509 Cosigner Signature (if applicable): CC: REID Mix; Willy Friend, [facility] Consult note [facility] Medical Records Department [address] [place] [address] Pre-Anesthesia Evaluation 04/11/25 1410 MR#: [id number] Acct: [id number] Name: SRINATH HAWK Rep #:[id number] : 1975 50 From: Shailesh Gomez MD PCP: REID Mix Status:REG [facility] Y Race: C Location: [place] [address] ASA Classification* ASA Classification ASA Classification: 1 Assessment & Plan Anesthesia* Anesthesia Assessment Anesthesia Assessment: Discussed sedation and/or anesthesia options, risks, benefits, and alternatives with patient/parents/legal guardian/POA. Questions invited. The patient/parents/legal guardian/POA seems to understand and agrees to proceedwith anesthesia plan. Reviewed the physical assessment, medical history, allergy history and patient home medications list prior to surgery/procedure/anesthetic and documented any changes. Performed airway and anesthesia risk assessments. Anesthesia Type Anesthesia Type: MAC History Source History Obtained from:: Patient and Chart Anesthesia Focused Assessment* Temperature: 98.1 F Pulse Rate: 104 Blood Pressure: 140/93 Respiratory Rate: 16 Pulse Ox: 100 Oxygen Delivery Method: Room Air Airway Assessment Mouth opens: >3 cm Mallampati Score: III Teeth Condition: Intact Neck Range of motion (ROM): Full ROM Labs Anesthesia Preop lab: CBC CHEMISTRY COAG Pre-Assessment Diagnosis/Proposed Procedure Planned Operative Procedure(s): COLONOSCOPY Anesthesia History Anesthesia History - diagnostic imaging manager: Anesthesia History - diagnostic imaging manager Hx Hospitalization No 04/06/25 11:27 Any Problems With Anesthesia No 04/06/25 11:27 Cholinesterase deficiency No 04/06/25 11:27 You/Your Family Experience No: UNSURE ADOPTED 04/06/25 11:27 fever (hyperthermia) with Relationship Recent Exposure to Contagious No 04/11/25 13:47 Disease Does patient have nerve No 04/06/25 11:27 stimulator Patient instructed to have device shut off --Does patient have Pacemaker No 04/11/25 13:47 or ICD? When Was Last Pacemaker Check QUESTION #4 FULL TEXT: You/Your Family Experience fever (hyperthermia) with Anesthesia Last Oral Intake Last Oral intake: Last Oral Intake NPO since 10:30 04/11/25 13:47 Meds taken in AM with sips of No 04/11/25 13:47 water? Meds patient instructed to take am of surgery Any additional information?: Yes NPO since: 10:30 (Patient finished her prep at 10:30 AM.) PONV PONV - diagnostic imaging manager: PONV - diagnostic imaging manager Female Yes 04/06/25 11:27 HX of Motion Sickness Yes 04/06/25 11:27 HX of N/V After Surgery No 04/06/25 11:27 Non-Smoker Yes 04/06/25 11:27 Duration of Surgery greater No 04/06/25 11:27 than 60 minutes Number of Risk Factors 3 04/06/25 11:27 PONV Score Moderate Risk 04/06/25 11:27 Height & Weight Height & Weight: Anesthesia: Height & Weight Height 5 ft 2 in 04/11/25 13:47 Weight: 56 kg 04/11/25 13:47 Body Mass Index (BMI) 22.6 04/11/25 13:47 Respiratory Assessment Respiratory Assessment - diagnostic imaging manager: Respiratory Tract Infection Hx - diagnostic imaging manager Hx Respiratory Tract Infection No 04/06/25 11:27 STOP Sleep Apnea STOP Sleep Apnea - diagnostic imaging manager: STOP Sleep Apnea - diagnostic imaging manager Hx Hypertension No 04/06/25 11:27 Hx Sleep Apnea No 04/06/25 11:27 CPAP BIPAP Do you snore loudly (louder No 04/06/25 11:27 than talking or can be heard Do you often feel tired/ No 04/06/25 11:27 fatigued/ sleepy during daytime? Has anyone observed you stop No 04/06/25 11:27 breathing during sleep? STOP Results Negative 04/06/25 11:27 QUESTION #5 FULL TEXT : Do you snore loudly (louder than talking or can be heard through closeddoors)? 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 Specify any problems Hx of Preganancy in last 3 No 04/06/25 11:27 Months Nurse Filling Out Transfusion [email or web address] 04/06/25 11:27 & Questions: Date: 04/06/25 04/06/25 11:27 Time: 11:29 04/06/25 11:27 Patient unable to answer at this time (ie. confused, unrespo /Reproduction History /Reproductive History - diagnostic imaging manager: /Reproductive Hx- diagnostic imaging manager Hx Now No 04/06/25 11:27 Gestational Age (in weeks): EDC: Hx Hx Para Hx Section SAB No 04/06/25 11:27 Active Medications Active Medications: Current Medications Generic Name Dose Route Start Last Admin Trade Name Freq PRN Reason Stop Dose Admin Lactated Ringer's 1,000 mls @ 15 mls/hr 04/11/25 14:00 04/11/25 13:53 IV 15 mls/hr .Q48H ELEAZAR Administration PFSH Medical History (Updated 04/06/25 @ 11:32 by Wes Wallace) Wears contact lenses Migraine headache History of Holter monitoring Home Medications ?Medication ?Instructions ?Recorded ?Last Taken ?Type norgestimate 0.18 mg/0.215mg/0.25 1 tab PO QDAY Unknown History mg-ethinyl estradiol 0.025 mg tablet peg 3350-sod sulf,vfwkp-hen-sbz 240 ml PO .COMPLEX #2 mL 12/16/24 Unknown Rx 178.7-7.3-0.5-1.12-0.9 gram oral soln (Suflave) ibuprofen 200 mg tablet (Advil) 400 mg PO Q8H PRN pain 04/06/25 Unknown History Allergy/AdvReac Type Severity Reaction Status Date / Time No Known Allergies Allergy Verified 04/11/25 13:46 no surgical history Social History Smoking Status: Never smoker Review of Systems (Anesthesia) ROS Narrative System reviewed and no additional complaints, except as documented. 04/11/25 1415 hannah DE JESUS> Date _ Shailesh Gomez Cosigner Signature: Date CC: ~ Signed [facility]04-04-2025 Evaluation note* Diagnosis Onset Date Resolution Status Admit Date Diarrhea acute December 16 4:04pm Diarrhea acute April 11 1:24pm [facility] Work Phone: Consult note Author Dale Giles [facility] Note Date/Time April 11, 2025 3:41 pm [facility] Medical Records Department [address] [place] [id number] Anesthesia Postop Eval I 04/11/25 1540 MR#: [id number] Acct: [id number] Name: SRINATH HAWK Rep #:[id number] : 1975 50 From: Dale Giles CRNA PCP: REID Mix Status:REG [facility] [place] Y Race: C Location: [place] [address] Anesthesia: Postop Eval I Current Vital Signs Temperature: 97.5 F Pulse Rate: 73 Blood Pressure: 94/69 Respiratory Rate: 15 Pulse Ox: 95 Oxygen Delivery Method: Room Air Assessment Airway patent: Yes Spontaneous unlabored respirations: Yes Mental status: Awake nausea: No Vomiting: No Anesthesia Complication: No Fluid Hydration Crystalloid volume administer (ml): 400 Total IV fluid infused: 400 Progress Note Anesthesia document: Postop Eval 1 completed: Yes 04/11/25 1541 <Electronically signed by Dale prather CRNA> Date _ Dale Giles CRNA Cosigner Signature: Date CC: ~ Signed [facility] Work Phone: History and physical note Author Willy Friend [facility] Note Date/Time April 11, 2025 3:09 pm [facility] Medical Records Department [address] [place] [address] History & Physical Exam 04/11/25 1506 MR#: [id number] Acct: [id number] Name: SRINATH HAWK Rep #:[id number] : 1975 50 From: Willy Boyle DO PCP: REID Mix Status:REG [facility] [place] Location: [address] HPI - General General Date of Admission: 04/11/25 Date of Service: 04/11/25 Chief Complaint: Diarrhea HPI Narrative SRINATH HAWK, is a 50 F who presents with the Chief Complaint: diarrhea Pt went on a cruise in Sep 2024 and two hours after eating lobster for dinner she started having sever nausea, vomiting and diarrhea. She was seen on by on the ship and was given an IV antibiotic and zofran. This eventually resolved however her bowels have not gone back to normal. She was someone who had a bm every few days. Now she has small stools multiple times per day. This is bothersome to her as it interrupts her at her job. All stool testing for infection has been normal. She has never had a colonoscopy before [facility] Medical History Wears contact lenses Migraine headache History of Holter monitoring Home Medications ?Medication ?Instructions ?Recorded ?Last Taken ?Type norgestimate 0.18 mg/0.215mg/0.25 1 tab PO QDAY Unknown History mg-ethinyl estradiol 0.025 mg tablet peg 3350-sod sulf,jytxx-xjt-hyf 240 ml PO .COMPLEX #2 mL 12/16/24 Unknown Rx 178.7-7.3-0.5-1.12-0.9 gram oral soln (Suflave) ibuprofen 200 mg tablet (Advil) 400 mg PO Q8H PRN pain 04/06/25 Unknown History Allergy/AdvReac Type Severity Reaction Status Date / Time No Known Allergies Allergy Verified 04/11/25 13:46 Surgical History no surgical history Social History Smoking Status: Never smoker ROS Constitutional Constitutional: Denies fatigue, fever(s), poor appetite, weight gain or weight loss Gastrointestinal Gastrointestinal: Denies belching, bloating, change in bowel habits, change in stool character, chewing difficulty, coffee ground emesis, constipation, cramping, diarrhea, dyspepsia, dysphagia, early satiety, excessive flatus, fecalincontinence, heartburn, hematemesis, hematochezia, hemorrhoids, loose stools, melena, nausea, odynophagia, rectal bleeding, tenesmus, vomiting or weight changes Vital Signs Vital Signs Vital Signs: 04/11/25 13:47 04/11/25 13:47 04/11/25 14:15 Temperature 98.1 F 98.1 F Temperature Source Temporal Pulse Rate 104 H 104 H Respiratory Rate 16 16 Respiratory Pattern Normal Blood Pressure 140/93 H 140/93 H Blood Pressure Mean 108 Blood Pressure Source Monitor Blood Pressure Position Semi-Fowlers Blood Pressure Location Left Arm Pulse Ox 100 100 Oxygen Delivery Method Room Air Room Air Weight Weight: 123 lb 7.342 oz Body Mass Index (BMI) 22.6 Physical Exam Const alert, oriented x3, no apparent distress and healthy appearing General Appearance: cooperative GI normal to inspection, nondistended, normoactive bowel sounds, soft to palpation,non-tender and non-distended Percussion: normal to percussion Rectal Exam: deferred Results Lab / Micro Data Labs: Laboratory Results - last 24 hr 04/11/25 13:50: Serum , Qual NEGATIVE Assessment & Plan Assessment/Plan (1) Diarrhea: PLAN: Assessment and Plan Assessment and Plan (1) Diarrhea: Status: Acute Plan: This is a 49 yo female pt here today for evaluation of changes in her bowel habits. Pt was on a cruise in Sep 2024 when she ate lobster and started vomitingand having diarrhea. Since then she has had small bm multiple times per day which is not normal for her. She has never had a colonoscopy. She will be scheduled for this today. I ordered calprotectin to ensure she does not have inflammation. I recommended she start a fiber supplement daily. -Colonoscopy -calprotectin -start fiber -f/u after procedure 04/11/25 1509 <Electronically signed by Willy Boyle DO> Cosigner Signature (if applicable): CC: REID Mix; Willy Boyle DO~ Signed [facility] Work Phone: Reason for referral (narrative)No reason for referral information [facility]WNew[facility] Work Phone: Summary Purpose Family History No Family History Records Found Advance Directives Advance Directive Response Recorded Date/ Time Do you have a Healthcare Power of Residential Assistant? No April 06, 2025 11:27am Chief Complaint and Reason for Visit Chief Complaint Admit Date Travelers Diarrhea December 16, 2024 4:04 pm Reason for Visit Admit Date Diarrhea December 16, 2024 4:04 pm Diarrhea April 11, 2025 1:24 pm Additional Source Comments INFORMATION SOURCE (unrecogn ized section and content) DATE CREATED AUTHOR 09/29/2024 [facility] DATE CREATED AUTHOR AUTHOR'S ORGANIZ ATION 09/30/2024 [facility] DATE CREATED AUTHOR AUTHOR'S ORGANIZ ATION 10/05/2024 [facility] DATE CREATED AUTHOR AUTHOR'S ORGANIZ ATION 12/17/2024 [facility] DATE CREATED AUTHOR AUTHOR'S ORGANIZ ATION 04/12/2025 [facility] Care Teams (unrecognized sec tion and content) Team Status: Active Member Role/Relationship Status Dates REID Finley Primary Care Provider Active Team Status: Inactive Member Role/Relationship Status Dates Dr. Navi Kebede MD Primary Care Provider Active Start: December 16, 2024 End: December 16, 2024 Dr. Navi Kebede MD Referring Provider Active Start: December 16, 2024 End: December 16, 2024 REID Treadwell Attending Provider Active Start: December 16, 2024 End: December 16, 2024 Team Status: Inactive Member Role/Relationship Status Dates Dr. Willy Boyle DO Attending Provider Active Start: April 11, 2025 End: April 11, 2025 REID Finley Primary Care Provider Active Start: April 11, 2025 End: April 11, 2025 REID Finley Referring Provider Active Start: April 11, 2025 End: April 11, 2025 Team Status: Active Member Role/Relationship Status Dates Dr. Willy Boyle DO Attending Provider Active Start: April 11, 2025 Dr. Willy Boyle , DO Other Provider Active St art: April 11, 2025 REID Finley Primary Care Provider Active Start: April 11, 2025 REID Finley Referring Provider Active Start: April 11, 2025 FOR RECORDS PERTAINING TO PATIENTS WHO ARE OR HAVE BEEN ENROLLED IN A CHEMICAL DEPENDENCY/SUBSTANCEABUSE PROGRAM, SOME INFORMATION MAY BE OMITTED. This clinical summary was aggregated from multiple sources. Caution should be exercised in using it in the provision of clinical care. This summary normalizes information from multiple sources, and as a consequence, information in this document may materially change the coding, format and clinical context of patient data. In addition, data may be omitted in some cases. CLINICAL DECISIONS SHOULD BE BASED ON THE PRIMARY CLINICAL RECORDS. [facility] [employer] provides no warranty or guarantee of the accuracy or completeness of information in this document.
[2025-04-17 08:07] LABS: Calprotectin, Stool 3320 ug/g (0-120)
== END | disposition home or self-care (01) ==
LOC: LABSPEC 11:38
PROVIDERS: PCP Physician Assistant; Referring Provider Internal Medicine Gastroenterology; Visit Provider Internal Medicine Gastroenterology
DX: K51.90 Ulcerative colitis, unspecified, without complications (principal); R19.7 Diarrhea, unspecified
CPT/HCPCS: 83630; 83993

== ENCOUNTER → 2025-07-26 | Outpatient (CLI) | payer OTHER, SELFPAY ==
[2025-07-26 11:50] LABS: Hematocrit 39.1 % (37-47); Hemoglobin 12.6 g/dL (12.0-15.0); Immature Granulocytes Count 0.030 X10^3/uL (0.0-0.0); Mean Corp Hgb Conc 32.2 g/dL (32-36); Mean Corpuscular Volume 88.5 fL (81-99); Mean Platelet Vol. 11.2 fl (6.2-12.0); NRBC Flagged by Analyzer 0 % (0-5); Platelet Count 398 K/mm3 (150-450); RBC Distribution Width CV 13.2 % (11.6-14.6); RBC Distribution Width SD 42.9 fl (35.1-43.9); Red Blood Count 4.42 M/mm3 (4.2-5.4); White Blood Count 8.4 K/mm3 (4.4-11.0)
[2025-07-26 12:52] LABS: AST(SGOT) 39 U/L (<=31); Alanine Aminotransfer ALT/SGPT 38 U/L (<=34); Albumin, Serum 4.1 g/dL (3.5-5.0); Alkaline Phosphatase 69 U/L (35-104); Anion Gap 11 (5-15); BUN 13 mg/dL (4-19); BUN/Creat Ratio 17.4 RATIO (10-20); CRP 4.52 mg/L (0.0-3.0); Calcium,Total 9.0 mg/dL (7.6-11.0); Carbon Dioxide 25.3 mmol/L (21.0-32.0); Chloride 102 mmol/L (98-108); Globulin 3.4 g/dL (2.2-4.2); Glucose 98 mg/dL (70-99); Potassium 3.9 mmol/L (3.3-5.1)
== END | disposition home or self-care (01) ==
LOC: LAB 11:18
PROVIDERS: PCP Physician Assistant; Referring Provider Student in an Organized Health Care Education/Training Program; Visit Provider Student in an Organized Health Care Education/Training Program
DX: K51.90 Ulcerative colitis, unspecified, without complications (principal); R19.7 Diarrhea, unspecified
CPT/HCPCS: 36415; 80053; 85025; 86140